=== PATIENT | male | born 1945 | race Caucasian/White ===

== ENCOUNTER 2023-06-03 15:46 | Inpatient (IN) | payer BC, MEDICAID ==
[~2023-06-03] VITALS: Ht 152.4 cm; Wt 51.3 kg
[~2023-06-03 15:46] MED LIST: ASPI-1497 MT; ATOR40TA70 PO; CLON-493 PO; CLOP75TA33 MT; GABA-532 PO; HYDR-3933 PO; ISOS60TA76 MT; LIDO700A TP; LORA2ORA5 PO; LOSA100T33 MT; METF-414 PO; METO-396 PO; MUPI15CR11 TP; OXYC-159 PO; PRAV20TA57 PO; TRAZ-252 MT
[2023-06-03] MEDS ORDERED: ONDANSETRON HCL 4MG/2ML INJ IV STA (15:59)
[2023-06-03] MEDS ORDERED: SODIUM CHLORIDE 0.9% 1,000 ML IV ONE (16:00)
[2023-06-03 17:08] LABS: BASOPHILS % 0.2 % (0.0-2.0); HEMATOCRIT. 38.3 % (42.0-52.0); HEMOGLOBIN. 12.5 g/dL (14.0-18.0); LYMPHOCYTES % 12.6 % (20.0-50.0); MEAN CORPUSCULAR HEMOGLOBIN 30.8 pg (28.0-32.0); MEAN CORPUSCULAR HGB CONC 32.7 g/dL (31.0-37.0); MEAN CORPUSCULAR VOLUME 94.4 fL (80.0-94.0); NEUTROPHILS % 80.2 % (40.0-76.0); PLATELET 397 x1000/uL (130-400); RED BLOOD CELL COUNT 4.06 mill/uL (4.7-6.1); RED CELL DISTRIBUTION WIDTH 16.8 % (11.6-14.6); WHITE BLOOD COUNT 6.6 x1000/uL (4.5-11.0)
[2023-06-03 17:14] LABS: INR 1.1; PROTHROMBIN TIME 12.1 sec (9.6-11.0)
[2023-06-03 17:15] LABS: CHLORIDE 103 mEq/L (98-107); INDEX HEMOLYSI 1 (1-3); INDEX ICTERIC 1 (1-4); INDEX LIPEMIC 1 (1-3); POTASSIUM 4.7 mEq/L (3.5-5.1); SODIUM 138 mEq/L (136-145)
[2023-06-03 17:29] LABS: ALANINE AMINOTRANSFERASE 11 IU/L (13-61); ALBUMIN 3.3 g/dL (3.4-5.0); ASPARTATE AMINOTRANSFERASE 21 IU/L (15-37); BILIRUBIN TOTAL 0.8 mg/dL (0.1-1.0); CALCIUM 9.1 mg/dL (8.5-10.1); CARBON DIOXIDE 21 mEq/L (21-32); CREATININE 1.5 mg/dL (0.6-1.3); GLUCOSE 95 mg/dL (70-105); PROTEIN TOTAL 9.4 g/dL (6.0-8.3); UREA NITROGEN BLOOD 40 mg/dL (7-21)
[2023-06-03 17:34] LABS: TROPONIN I HIGH SENSITIVITY 435 ng/L (<78)
[2023-06-03] MEDS ORDERED: ASPIRIN 325MG TABLET PO ONE (18:00)
[2023-06-03 18:54] LABS: CLARITY URINE CLEAR (CLEAR); COLOR URINE YELLOW (YELLOW); GLUCOSE URINE NEGATIVE (NEGATIVE); KETONES URINE 2+ (NEGATIVE); LEUKOCYTE ESTERASE URINE NEGATIVE (NEGATIVE); NITRITE URINE NEGATIVE (NEGATIVE); OCCULT BLOOD URINE 2+ (NEGATIVE); PH URINE 5.5 (4.5-8.0); PROTEIN URINE 2+ (NEGATIVE); SPECIFIC GRAVITY URINE 1.014 (1.005-1.030)
[2023-06-03 18:57] LABS: BACTERIA URINE NONE SEEN; SQUAMOUS EPITHELIAL CELL URINE NONE SEEN /lpf (RARE/1+); WBC URINE 0-2 /hpf (0-2); YEAST URINE NONE SEEN
[2023-06-03 20:39] LABS: TROPONIN I HIGH SENSITIVITY 934 ng/L (<78)
[2023-06-03] MEDS ORDERED: LABETALOL 5MG/ML SYR 20 MG/4 ML SYRINGE IV NR (22:15)
[2023-06-03] MEDS ORDERED: LABETALOL HCL VIAL 20 MG/4 ML VIAL IV ONE (22:15)
[2023-06-04] MEDS ORDERED: ONDANSETRON HCL 4MG/2ML INJ IV ONE (04:30)
[2023-06-04] MEDS ORDERED: DEXTROSE 50% WATER 50ML SYRINGE IV ONE (04:30)
[2023-06-04] MEDS ORDERED: DEXT 5%/0.45% NACL 500ML 1,000 ML IV SCH (05:45)
[2023-06-04] MEDS: DEXT 5%/0.45% NACL 1000ML 1,000 ML IV SCH ×2 (05:59→06:00)
[2023-06-04] MEDS ORDERED: DIATR MEGLU/DIATRIZOATE SOLN 120ML ONE (10:36)
[2023-06-04] MEDS ORDERED: ONDANSETRON HCL 4MG/2ML INJ IV PRN (11:45)
[2023-06-04] MEDS ORDERED: ACETAMINOPHEN 325MG TABLET PO PRN ×2 (11:45)
[2023-06-04] MEDS ORDERED: CLONIDINE 0.1MG TABLET PO PRN (11:45)
[2023-06-04] MEDS ORDERED: IPRATROPIUM/ALBUTEROL 0.5-3(2.5)MG/3ML NEB HHN PRN (11:45)
[2023-06-04] MEDS ORDERED: DOCUSATE SODIUM 100MG CAPSULE PO PRN (11:45)
[2023-06-04] MEDS: CLOPIDOGREL 75MG TABLET PO SCH (12:38)
[2023-06-04] MEDS: ASPIRIN 81MG TABLET PO SCH (12:38)
[2023-06-04 14:00] VITALS: BP_SYST 134; BP_SYST 175; BP_DIAS 81; BP_DIAS 83; PULSE 86; PULSE 99; RESP 18; RESP 20; TEMP 97.1; TEMP 97.8
[2023-06-04] MEDS: METOPROLOL SUCCINATE 50MG ER TABLET PO SCH (15:35)
[2023-06-04] MEDS: GABAPENTIN 300MG CAPSULE PO SCH (15:37)
[2023-06-04] MEDS: NITROGLYCERIN OINT 1GM/INCH UDPKT TD SCH (15:37)
[2023-06-04] MEDS: ENOXAPARIN 80MG/0.8ML SYR SUBCUT SCH (15:40)
[2023-06-04 16:00] VITALS: BP 175/81; PULSE 86; RESP 18; TEMP 97.1
[2023-06-04 17:22] LABS: BASOPHILS % 0.2 % (0.0-2.0); EOSINOPHILS % 0.1 % (0.0-5.0); HEMATOCRIT. 34.3 % (42.0-52.0); HEMOGLOBIN. 12.3 g/dL (14.0-18.0); LYMPHOCYTES % 13.8 % (20.0-50.0); MEAN CORPUSCULAR HEMOGLOBIN 34.4 pg (28.0-32.0); MEAN CORPUSCULAR HGB CONC 35.9 g/dL (31.0-37.0); MEAN CORPUSCULAR VOLUME 95.8 fL (80.0-94.0); MEAN PLATELET VOLUME 7.3 fl (7.4-10.4); MONOCYTES % 8.9 % (2.0-8.0); PLATELET 451 x1000/uL (130-400); RED BLOOD CELL COUNT 3.58 mill/uL (4.7-6.1); RED CELL DISTRIBUTION WIDTH 16.7 % (11.6-14.6); WHITE BLOOD COUNT 8.2 x1000/uL (4.5-11.0)
[2023-06-04] MEDS: INSULIN LISPRO 100 UNITS/ML SUBCUT SCH (17:40)
[2023-06-04 17:41] LABS: POTASSIUM 4.1 mEq/L (3.5-5.1)
[2023-06-04 17:57] LABS: CREATINE KINASE MB FRACTION 17.5 ng/mL (0.5-3.6); CREATININE 1.3 mg/dL (0.6-1.3); THYROID STIMULATING HORMONE 0.14 uIU/mL (0.36-3.74)
[2023-06-04] MEDS: BLOOD SUGAR DIAGNOSTIC STRIP TEST SCH (18:01)
[2023-06-04] MEDS: METRONIDAZOLE 500 MG PREMIX 100 ML IV SCH (18:12)
[2023-06-04 20:00] VITALS: BP 158/77; PULSE 85; RESP 20; TEMP 98.2
[2023-06-04 23:37] LABS: CREATINE KINASE MB FRACTION 13.6 ng/mL (0.5-3.6)
[2023-06-05] VITALS: BP 126/63; PULSE 85; RESP 20; TEMP 98.1
[2023-06-05] MEDS: ATORVASTATIN CALCIUM 40MG TABLET PO SCH ×2 (01:59→21:08)
[2023-06-05] MEDS: GABAPENTIN 300MG CAPSULE PO SCH ×4 (02:00→21:08)
[2023-06-05] MEDS: NITROGLYCERIN OINT 1GM/INCH UDPKT TD SCH ×4 (02:00→21:24)
[2023-06-05] MEDS: METRONIDAZOLE 500 MG PREMIX 100 ML IV SCH ×3 (02:01→16:20)
[2023-06-05] MEDS: BLOOD SUGAR DIAGNOSTIC STRIP TEST SCH ×4 (07:10→21:13)
[2023-06-05] MEDS: INSULIN LISPRO 100 UNITS/ML SUBCUT SCH ×4 (07:40→21:09)
[2023-06-05 08:00] VITALS: BP 135/75; PULSE 76; RESP 18; TEMP 97.4
[2023-06-05] MEDS: PANTOPRAZOLE SODIUM 40 MG/VIAL IV SCH (08:38)
[2023-06-05] MEDS: LOSARTAN 100 MG TABLET PO SCH (08:39)
[2023-06-05] MEDS: ASPIRIN 81MG TABLET PO SCH (08:39)
[2023-06-05] MEDS: CLOPIDOGREL 75MG TABLET PO SCH (08:40)
[2023-06-05] MEDS: METOPROLOL SUCCINATE 50MG ER TABLET PO SCH (08:40)
[2023-06-05] MEDS: DEXT 5%/0.45% NACL 1000ML 1,000 ML IV SCH (08:40)
[2023-06-05] MEDS ORDERED: HYDROCODONE/ACETAMINOPHEN 5/325MG TABLET PO PRN (11:00)
[2023-06-05 12:00] VITALS: BP 128/58; PULSE 64; RESP 20; TEMP 96.3
[2023-06-05 12:53] LABS: POTASSIUM 3.9 mEq/L (3.5-5.1)
[2023-06-05 13:07] LABS: CREATININE 1.4 mg/dL (0.6-1.3); T4 FREE 1.19 ng/dL (0.76-1.46)
[2023-06-05] MEDS ORDERED: NALOXONE HCL 0.4MG/ML VIAL IV PRN (14:00)
[2023-06-05 14:23] LABS: BASOPHILS % 0.4 % (0.0-2.0); EOSINOPHILS % 0.5 % (0.0-5.0); HEMATOCRIT. 34.7 % (42.0-52.0); HEMOGLOBIN. 11.6 g/dL (14.0-18.0); LYMPHOCYTES % 24.1 % (20.0-50.0); MEAN CORPUSCULAR HEMOGLOBIN 31.3 pg (28.0-32.0); MEAN CORPUSCULAR HGB CONC 33.3 g/dL (31.0-37.0); MEAN CORPUSCULAR VOLUME 93.9 fL (80.0-94.0); MEAN PLATELET VOLUME 7.1 fl (7.4-10.4); MONOCYTES % 10.7 % (2.0-8.0); NEUTROPHILS % 64.3 % (40.0-76.0); PLATELET 438 x1000/uL (130-400); RED BLOOD CELL COUNT 3.69 mill/uL (4.7-6.1); RED CELL DISTRIBUTION WIDTH 16.8 % (11.6-14.6)
[2023-06-05 16:00] VITALS: BP 110/51; PULSE 63; RESP 18; TEMP 98.1
[2023-06-05] MEDS: HYDROCODONE/ACETAMINOPHEN 10/325MG TABLET PO PRN (16:20)
[2023-06-05] MEDS: ENOXAPARIN 80MG/0.8ML SYR SUBCUT SCH (16:20)
[2023-06-05 20:00] VITALS: BP 107/40; PULSE 66; RESP 16; TEMP 98.9
[2023-06-06] VITALS: BP 109/49; PULSE 60; RESP 18; TEMP 97.9
[2023-06-06] MEDS: DEXT 5%/0.45% NACL 1000ML 1,000 ML IV SCH (01:21)
[2023-06-06] MEDS: METRONIDAZOLE 500 MG PREMIX 100 ML IV SCH ×3 (01:33→17:30)
[2023-06-06 04:00] VITALS: BP 125/46; PULSE 61; RESP 16; TEMP 97.7
[2023-06-06] MEDS: HYDROCODONE/ACETAMINOPHEN 10/325MG TABLET PO PRN ×5 (04:36→20:48)
[2023-06-06] MEDS: GABAPENTIN 300MG CAPSULE PO SCH ×3 (05:58→21:56)
[2023-06-06] MEDS: NITROGLYCERIN OINT 1GM/INCH UDPKT TD SCH ×3 (05:58→21:57)
[2023-06-06] MEDS: BLOOD SUGAR DIAGNOSTIC STRIP TEST SCH ×4 (06:16→20:49)
[2023-06-06] MEDS: INSULIN LISPRO 100 UNITS/ML SUBCUT SCH ×4 (07:40→20:48)
[2023-06-06 07:45] LABS: BASOPHILS % 0.6 % (0.0-2.0); HEMATOCRIT. 34.1 % (42.0-52.0); MEAN CORPUSCULAR HEMOGLOBIN 29.1 pg (28.0-32.0); MEAN CORPUSCULAR VOLUME 90.6 fL (80.0-94.0); MEAN PLATELET VOLUME 7.2 fl (7.4-10.4); NEUTROPHILS % 51.4 % (40.0-76.0); PLATELET 392 x1000/uL (130-400); RED BLOOD CELL COUNT 3.77 mill/uL (4.7-6.1); WHITE BLOOD COUNT 7.2 x1000/uL (4.5-11.0)
[2023-06-06 07:49] LABS: DIFFERENTIAL COMMENT 1; MEAN CORPUSCULAR HGB CONC 32.1 g/dL (31.0-37.0)
[2023-06-06 08:00] VITALS: BP 143/94; PULSE 55; RESP 20; TEMP 97.5
[2023-06-06] MEDS: LOSARTAN 100 MG TABLET PO SCH (08:29)
[2023-06-06] MEDS: PANTOPRAZOLE SODIUM 40 MG/VIAL IV SCH (08:29)
[2023-06-06] MEDS: CLOPIDOGREL 75MG TABLET PO SCH (08:29)
[2023-06-06] MEDS: ASPIRIN 81MG TABLET PO SCH (08:29)
[2023-06-06] MEDS: METOPROLOL SUCCINATE 50MG ER TABLET PO SCH (08:30)
[2023-06-06 09:04] LABS: POTASSIUM 3.7 mEq/L (3.5-5.1)
[2023-06-06 09:11] LABS: CALCIUM 8.3 mg/dL (8.5-10.1); CREATININE 1.5 mg/dL (0.6-1.3)
[2023-06-06] MEDS ORDERED: DIPHENHYDRAMINE 50MG/ML VIAL ONE (11:41)
[2023-06-06] MEDS ORDERED: LIDOCAINE HCL 1% 20ML VIAL (Pyxis) INJ ONE (11:41)
[2023-06-06] MEDS ORDERED: VERAPAMIL HCL 2.5 MG/1 ML 2ML VIAL IV ONE (11:41)
[2023-06-06] MEDS ORDERED: FENTANYL CITRATE/PF 50MCG/ML 2ML VIAL ONE (11:42)
[2023-06-06] MEDS ORDERED: MIDAZOLAM HCL 2 MG/2 ML VIAL ONE (11:42)
[2023-06-06] MEDS ORDERED: HEPARIN 1000 UNITS/ML 10ML ONE (11:42)
[2023-06-06] MEDS ORDERED: IODIXANOL 320MG/ML 100 ML BOTTLE IV ONE (11:43)
[2023-06-06] MEDS ORDERED: ATROPINE SULFATE 1MG/10ML SYR IV PRN (13:30)
[2023-06-06] MEDS ORDERED: SODIUM CHLORIDE 0.45% 250 ML IV SCH (13:30)
[2023-06-06] MEDS ORDERED: ACETAMINOPHEN 325MG TABLET PO PRN ×2 (13:30→17:00)
[2023-06-06] MEDS: SODIUM CHLORIDE 0.45% 1,000 ML IV SCH (14:30)
[2023-06-06 16:00] VITALS: BP 135/64; PULSE 85; RESP 16; TEMP 98
[2023-06-06] MEDS ORDERED: NITROGLYCERIN 0.4MG TABLET SL SL PRN (17:00)
[2023-06-06 20:00] VITALS: BP 112/47; PULSE 73; RESP 17; TEMP 98.1
[2023-06-06] MEDS: ATORVASTATIN CALCIUM 40MG TABLET PO SCH (20:48)
[2023-06-07] VITALS: BP 119/60; PULSE 65; RESP 15; TEMP 97.8
[2023-06-07] MEDS: METRONIDAZOLE 500 MG PREMIX 100 ML IV SCH ×2 (02:22→08:58)
[2023-06-07 04:00] VITALS: BP 125/51; PULSE 67; RESP 14; TEMP 97.5
[2023-06-07] MEDS: BLOOD SUGAR DIAGNOSTIC STRIP TEST SCH ×4 (06:50→20:57)
[2023-06-07] MEDS: GABAPENTIN 300MG CAPSULE PO SCH ×3 (06:57→21:07)
[2023-06-07] MEDS: NITROGLYCERIN OINT 1GM/INCH UDPKT TD SCH ×3 (06:58→21:15)
[2023-06-07] MEDS: INSULIN LISPRO 100 UNITS/ML SUBCUT SCH ×4 (06:58→20:58)
[2023-06-07 07:26] LABS: CALCIUM 7.5 mg/dL (8.5-10.1); CREATININE 1.5 mg/dL (0.6-1.3)
[2023-06-07 08:00] VITALS: BP 152/55; PULSE 90; RESP 18; TEMP 96.8
[2023-06-07] MEDS: ASPIRIN 81MG TABLET PO SCH (08:10)
[2023-06-07] MEDS: METOPROLOL SUCCINATE 50MG ER TABLET PO SCH (08:11)
[2023-06-07] MEDS: SODIUM CHLORIDE 0.45% 1,000 ML IV SCH (08:58)
[2023-06-07] MEDS ORDERED: ENOXAPARIN 80MG/0.8ML SYR SUBCUT SCH (09:00)
[2023-06-07 09:06] LABS: BASOPHILS % 0.5 % (0.0-2.0); EOSINOPHILS % 2.3 % (0.0-5.0); HEMATOCRIT. 34.6 % (42.0-52.0); HEMOGLOBIN. 11.2 g/dL (14.0-18.0); LYMPHOCYTES % 22.3 % (20.0-50.0); MEAN CORPUSCULAR HEMOGLOBIN 29.3 pg (28.0-32.0); MEAN CORPUSCULAR HGB CONC 32.3 g/dL (31.0-37.0); MEAN CORPUSCULAR VOLUME 90.7 fL (80.0-94.0); MONOCYTES % 8.9 % (2.0-8.0); PLATELET 376 x1000/uL (130-400); RED BLOOD CELL COUNT 3.81 mill/uL (4.7-6.1); RED CELL DISTRIBUTION WIDTH 16.7 % (11.6-14.6); WHITE BLOOD COUNT 9.3 x1000/uL (4.5-11.0)
[2023-06-07] MEDS: FAMOTIDINE 20MG/2ML VIAL IV SCH ×2 (09:16→21:08)
[2023-06-07 12:00] VITALS: BP 132/73; PULSE 80; RESP 16; TEMP 97.3
[2023-06-07] MEDS: PIPERACILLIN/TAZOBACTAM 3.375 G in DEXTROSE 5% WATER 50 ML IV SCH ×2 (12:00→19:37)
[2023-06-07] MEDS: HYDROCODONE/ACETAMINOPHEN 10/325MG TABLET PO PRN ×2 (15:12→21:18)
[2023-06-07 16:00] VITALS: BP 130/46; PULSE 72; RESP 19; TEMP 98.6
[2023-06-07 20:00] VITALS: BP 136/51; PULSE 70; RESP 16; TEMP 98.3
[2023-06-07] MEDS ORDERED: CHLORHEXIDINE GLUCONATE 4% EXTERNAL USE TOP SCH (21:00)
[2023-06-07] MEDS ORDERED: DIPHENHYDRAMINE 25MG CAPSULE PO PRN (21:00)
[2023-06-07] MEDS ORDERED: ASCORBIC ACID 500 MG TABLET PO SCH (21:00)
[2023-06-07] MEDS ORDERED: BISACODYL 10MG SUPP PR PRN (21:00)
[2023-06-07] MEDS ORDERED: DOCUSATE SODIUM 100MG CAPSULE PO SCH (21:00)
[2023-06-07] MEDS: ALLOPURINOL 300 MG TABLET PO SCH (21:08)
[2023-06-07] MEDS: ATORVASTATIN CALCIUM 40MG TABLET PO SCH (21:08)
[2023-06-08] VITALS (25 sets, daily range): BP systolic 76–143; BP diastolic 31–76; PULSE 62–142; RESP 13–27; TEMP 94.6–99.8
[2023-06-08] MEDS: HYDROCODONE/ACETAMINOPHEN 10/325MG TABLET PO PRN ×2 (01:02→06:04)
[2023-06-08] MEDS: PIPERACILLIN/TAZOBACTAM 3.375 G in DEXTROSE 5% WATER 50 ML IV SCH ×3 (01:02→22:00)
[2023-06-08] MEDS ORDERED: INSULIN REGULAR 100 U/100 ML PREMIX IV NR (05:00)
[2023-06-08] MEDS ORDERED: NOREPINEPHRINE 8MG/250ML PMX 250 ML IV NR (05:00)
[2023-06-08] MEDS ORDERED: CEFAZOLIN 2,000 MG in DEXT 5% WATER 100 ML IV NR (05:00)
[2023-06-08] MEDS ORDERED: EPINEPHRINE 5 MG in DEXT 5% WATER 250 ML IV NR (05:00)
[2023-06-08] MEDS ORDERED: PAPAVERINE HCL 180MG in SODIUM CHLORIDE 0.9% 24ML IV NR ×2 (05:00→16:15)
[2023-06-08] MEDS ORDERED: DOBUTAMINE 250 MG/250 ML PREMIX IV NR (05:00)
[2023-06-08] MEDS ORDERED: DEL NIDO CARDIOPLEGIA 1,000 ML (CHMC) IV NR ×12 (05:00)
[2023-06-08] MEDS ORDERED: NICARDIPINE 40MG/200ML PREMIX 230 ML IV NR (05:00)
[2023-06-08] MEDS: GABAPENTIN 300MG CAPSULE PO SCH (05:51)
[2023-06-08] MEDS: ALLOPURINOL 300 MG TABLET PO SCH (05:52)
[2023-06-08] MEDS: NITROGLYCERIN OINT 1GM/INCH UDPKT TD SCH (05:56)
[2023-06-08] MEDS: SODIUM CHLORIDE 0.45% 1,000 ML IV SCH (06:30)
[2023-06-08] MEDS: BLOOD SUGAR DIAGNOSTIC STRIP TEST SCH ×6 (06:42→23:54)
[2023-06-08] MEDS: INSULIN LISPRO 100 UNITS/ML SUBCUT SCH ×2 (07:20→12:20)
[2023-06-08] MEDS ORDERED: CHLORHEXIDINE GLUCONATE 4% EXTERNAL USE TOP SCH (09:00)
[2023-06-08] MEDS ORDERED: BLOOD SUGAR DIAGNOSTIC STRIP TEST NR (10:00)
[2023-06-08 10:46] LABS: POTASSIUM 4.2 mEq/L (3.5-5.1)
[2023-06-08 10:53] LABS: CREATININE 1.4 mg/dL (0.6-1.3)
[2023-06-08 11:05] LABS: BASOPHILS % 0.5 % (0.0-2.0); EOSINOPHILS % 3.9 % (0.0-5.0); HEMATOCRIT. 33.7 % (42.0-52.0); HEMOGLOBIN. 10.8 g/dL (14.0-18.0); LYMPHOCYTES % 34.7 % (20.0-50.0); MEAN CORPUSCULAR HEMOGLOBIN 29.3 pg (28.0-32.0); MEAN CORPUSCULAR HGB CONC 31.9 g/dL (31.0-37.0); MEAN CORPUSCULAR VOLUME 91.9 fL (80.0-94.0); MEAN PLATELET VOLUME 7.5 fl (7.4-10.4); MONOCYTES % 9.8 % (2.0-8.0); NEUTROPHILS % 51.1 % (40.0-76.0); PLATELET 359 x1000/uL (130-400); RED BLOOD CELL COUNT 3.67 mill/uL (4.7-6.1); RED CELL DISTRIBUTION WIDTH 17.1 % (11.6-14.6); WHITE BLOOD COUNT 6.2 x1000/uL (4.5-11.0)
[2023-06-08] MEDS: FAMOTIDINE 20MG/2ML VIAL IV SCH ×2 (11:23→21:37)
[2023-06-08] MEDS ORDERED: DOPAMINE 400MG/250ML PREMIX 250 ML IV ONE (11:29)
[2023-06-08] MEDS ORDERED: NITROGLYCERIN 50MG PREMIX 250 ML IV ONE (11:30)
[2023-06-08] MEDS ORDERED: HEPARIN 1000 UNITS/ML 10ML ONE (11:30)
[2023-06-08] MEDS ORDERED: ETOMIDATE 2MG/ML 10ML VIAL IV ONE (11:41)
[2023-06-08] MEDS ORDERED: VECURONIUM BROMIDE 10 MG/VIAL IV ONE (11:41)
[2023-06-08] MEDS ORDERED: AMINOCAPROIC ACID 250 MG/ML 20ML VIAL ONE (11:41)
[2023-06-08] MEDS ORDERED: CEFAZOLIN SODIUM 1000MG/VIAL ONE (11:51)
[2023-06-08] MEDS ORDERED: PROTAMINE SULFATE 10MG/ML VIAL 25ML IV ONE ×2 (12:48→19:17)
[2023-06-08] MEDS ORDERED: GLYCOPYRROLATE 0.2 MG/ML 2ML VIAL ONE ×3 (13:34→18:15)
[2023-06-08] MEDS ORDERED: NEOSTIGMINE METHYLSULFATE 1MG/ML 10 ML VIAL ONE ×2 (13:34→18:15)
[2023-06-08] MEDS ORDERED: THROMBIN (BOVINE) 5000 UNITS/VIAL TOP ONE (15:32)
[2023-06-08] MEDS ORDERED: ACETAMINOPHEN 500MG TABLET ONE (15:33)
[2023-06-08] MEDS ORDERED: POLYMYXIN B SULFATE 500000 UNITS/VIAL ONE (15:33)
[2023-06-08] MEDS ORDERED: SKIN ADHESIVE 0.7 GM EA TOP ONE (15:33)
[2023-06-08] MEDS ORDERED: FENTANYL CITRATE/PF 50MCG/ML 5ML VIAL ONE (15:44)
[2023-06-08] MEDS ORDERED: LR with VERAPAMIL, NTG, HEPARIN, SODIUM BICARBONATE (Soln) IV NR ×5 (15:45)
[2023-06-08] MEDS ORDERED: VANCOMYCIN HCL 1 GM/VIAL ONE (16:41)
[2023-06-08] MEDS ORDERED: DEXTROSE 50% WATER 50ML SYRINGE IV ONE (17:40)
[2023-06-08] MEDS ORDERED: CALCIUM CHLORIDE 1GM/10ML SYR IV ONE (17:50)
[2023-06-08] MEDS ORDERED: ONDANSETRON HCL 4MG/2ML INJ ONE (18:15)
[2023-06-08] MEDS ORDERED: SODIUM BICARBONATE 8.4% 1 MEQ/ML 50ML SYR IV ONE (18:36)
[2023-06-08] MEDS ORDERED: ALBUMIN HUMAN 12.5G/250ML (5%) IV ONE (18:50)
[2023-06-08] MEDS ORDERED: MAGNESIUM 1 G PREMIX 100 ML IV PRN (19:00)
[2023-06-08] MEDS ORDERED: ACETAMINOPHEN 325MG TABLET PO PRN (19:00)
[2023-06-08] MEDS ORDERED: MAGNESIUM SULFATE 3 GM in DEXT 5% WATER 100 ML IV PRN (19:00)
[2023-06-08] MEDS ORDERED: ALBUMIN HUMAN 25GM/100ML (25%) IV PRN (19:00)
[2023-06-08] MEDS ORDERED: CALCIUM CHLORIDE 5,000 MG in DEXT 5% WATER 500 ML IV PRN (19:00)
[2023-06-08] MEDS ORDERED: CALCIUM CHLORIDE 3,000 MG in DEXT 5% WATER 250 ML IV PRN (19:00)
[2023-06-08] MEDS ORDERED: SODIUM CHLORIDE 0.9% 500 ML IV PRN (19:00)
[2023-06-08] MEDS ORDERED: OXYCODONE HCL/ACETAMINOPHEN 5/325MG TABLET PO PRN (19:00)
[2023-06-08] MEDS ORDERED: KETOROLAC 15MG/ML VIAL IV PRN (19:00)
[2023-06-08] MEDS ORDERED: ALBUMIN HUMAN 12.5G/250ML (5%) IV PRN (19:00)
[2023-06-08] MEDS ORDERED: KCL 10MEQ/50ML PREMIX 150 ML IV PRN (19:15)
[2023-06-08] MEDS ORDERED: KCL 10MEQ/50ML PREMIX 200 ML IV PRN (19:15)
[2023-06-08] MEDS: KCL 20MEQ/100ML PREMIX 100 ML IV SCH ×3 (19:57→23:41)
[2023-06-08 20:17] LABS: BG BASE EXCESS -8.1 mmol/L (-2.0-2.0); BG CARBOXYHEMOGLOBIN 0.3 % (0.5-1.5); BG DEOXYHEMOGLOBIN 8.1 % (0.0-5.0); BG FRACTION INSPIRED OXYGEN 60; BG HCO3 ACT 19.4 mmol/L (22.0-26.0); BG METHEMOGLOBIN 0.3 % (0.0-1.5); BG OXYGEN SATURATION 91.9 % (92.0-98.5); BG OXYHEMOGLOBIN 91.3 % (94.0-97.0); BG PCO2 48.5 mmHg (35.0-45.0); BG PH 7.219 (7.350-7.450); BG SAMPLE SITE ALINE; BG TOTAL HEMOGLOBIN 10.5 g/dL (12.0-18.0); BG VENT MODE VENT - AC
[2023-06-08] MEDS: DOPAMINE 400MG/250ML PREMIX 250 ML IV PRN (20:19)
[2023-06-08] MEDS: ASPIRIN 81MG TABLET PO SCH (20:28)
[2023-06-08] MEDS: METOPROLOL SUCCINATE 50MG ER TABLET PO SCH (20:28)
[2023-06-08] MEDS: IPRATROPIUM/ALBUTEROL 0.5-3(2.5)MG/3ML NEB HHN SCH (20:42)
[2023-06-08] MEDS ORDERED: SODIUM BICARBONATE 8.4% 1 MEQ/ML 50ML SYR IV NR (20:59)
[2023-06-08] MEDS ORDERED: INSULIN REGULAR 100U/100ML PMX 100 ML IV SCH (21:00)
[2023-06-08] MEDS ORDERED: POTASSIUM CHLORIDE INJ 60 MEQ in DEXT 5% WATER 250 ML IV ONE (21:30)
[2023-06-08] MEDS ORDERED: DEXMEDETOMIDINE 400 MCG/100 ML 100 ML IV PRN (21:30)
[2023-06-08] MEDS ORDERED: FENTANYL CITRATE/PF 50MCG/ML 2ML VIAL IV PRN (21:42)
[2023-06-08] MEDS: ATORVASTATIN CALCIUM 40MG TABLET PO SCH (21:42)
[2023-06-08 22:00] LABS: BG BASE EXCESS -2.5 mmol/L (-2.0-2.0); BG FRACTION INSPIRED OXYGEN 60; BG HCO3 ACT 24.5 mmol/L (22.0-26.0); BG METHEMOGLOBIN 0.3 % (0.0-1.5); BG OXYHEMOGLOBIN 96.7 % (94.0-97.0); BG PCO2 54.3 mmHg (35.0-45.0); BG PH 7.272 (7.350-7.450); BG PO2 101.1 mmHg (75.0-100.0); BG SAMPLE SITE ALINE; BG TOTAL HEMOGLOBIN 8.7 g/dL (12.0-18.0); BG VENT MODE VENT - AC
[2023-06-08 23:05] LABS: BG BASE EXCESS -3.8 mmol/L (-2.0-2.0); BG CARBOXYHEMOGLOBIN 0.1 % (0.5-1.5); BG DEOXYHEMOGLOBIN 4.8 % (0.0-5.0); BG FRACTION INSPIRED OXYGEN 50; BG HCO3 ACT 22.4 mmol/L (22.0-26.0); BG OXYGEN SATURATION 95.2 % (92.0-98.5); BG OXYHEMOGLOBIN 95.1 % (94.0-97.0); BG PCO2 46.1 mmHg (35.0-45.0); BG PH 7.305 (7.350-7.450); BG PO2 78.5 mmHg (75.0-100.0); BG SAMPLE SITE ALINE; BG TOTAL HEMOGLOBIN 8.8 g/dL (12.0-18.0); BG VENT MODE VENT - AC
[2023-06-09] VITALS (103 sets, daily range): BP systolic 85–162; BP diastolic 37–113; PULSE 74–141; RESP 10–26; TEMP 97.6–101; O2SAT 99
[2023-06-09 00:22] LABS: MEAN CORPUSCULAR HEMOGLOBIN 33.8 pg (28.0-32.0); MEAN CORPUSCULAR HGB CONC 32.2 g/dL (31.0-37.0); MEAN CORPUSCULAR VOLUME 104.7 fL (80.0-94.0); PLATELET 305 x1000/uL (130-400); RED BLOOD CELL COUNT 1.87 mill/uL (4.7-6.1); RED CELL DISTRIBUTION WIDTH 16.9 % (11.6-14.6); WHITE BLOOD COUNT 18.7 x1000/uL (4.5-11.0)
[2023-06-09 00:25] LABS: POTASSIUM 3.7 mEq/L (3.5-5.1)
[2023-06-09 00:30] LABS: CALCIUM 9.2 mg/dL (8.5-10.1); CREATININE 1.3 mg/dL (0.6-1.3); HEMATOCRIT 19.6 % (42.0-52.0); HEMOGLOBIN 6.3 g/dL (14.0-18.0)
[2023-06-09] MEDS: IPRATROPIUM/ALBUTEROL 0.5-3(2.5)MG/3ML NEB HHN SCH ×4 (00:34→20:47)
[2023-06-09] MEDS ORDERED: ACETAMINOPHEN 650MG SUPP PR PRN ×2 (00:53)
[2023-06-09] MEDS: BLOOD SUGAR DIAGNOSTIC STRIP TEST SCH ×22 (01:00→23:35)
[2023-06-09] MEDS: EPINEPHRINE 5 MG in DEXT 5% WATER 245 ML IV PRN ×2 (01:06→15:45)
[2023-06-09] MEDS: KCL 20MEQ/100ML PREMIX 100 ML IV SCH (01:07)
[2023-06-09] MEDS: CEFAZOLIN 1000MG PREMIX 50 ML IV SCH ×4 (01:11→23:55)
[2023-06-09 01:21] LABS: HEMATOCRIT 19.4 % (42.0-52.0); HEMOGLOBIN 6.1 g/dL (14.0-18.0)
[2023-06-09] MEDS: SODIUM CHLORIDE 0.45% 1,000 ML IV SCH ×2 (01:45→21:45)
[2023-06-09] MEDS ORDERED: FUROSEMIDE 40MG/4ML VIAL IVP NR ×4 (04:43→22:15)
[2023-06-09 05:09] LABS: CALCIUM 9.2 mg/dL (8.5-10.1); POTASSIUM 3.8 mEq/L (3.5-5.1)
[2023-06-09 05:13] LABS: CREATININE 1.4 mg/dL (0.6-1.3)
[2023-06-09] MEDS: DEXTROSE 50% WATER 50ML SYRINGE IV PRN ×4 (05:22→22:50)
[2023-06-09] MEDS: PIPERACILLIN/TAZOBACTAM 3.375 G in DEXTROSE 5% WATER 50 ML IV SCH ×3 (05:22→21:51)
[2023-06-09 05:23] LABS: BG BASE EXCESS -2.5 mmol/L (-2.0-2.0); BG CARBOXYHEMOGLOBIN 0.1 % (0.5-1.5); BG DEOXYHEMOGLOBIN 0.8 % (0.0-5.0); BG FRACTION INSPIRED OXYGEN 50; BG HCO3 ACT 22.3 mmol/L (22.0-26.0); BG METHEMOGLOBIN 0.3 % (0.0-1.5); BG OXYGEN SATURATION 99.2 % (92.0-98.5); BG OXYHEMOGLOBIN 98.8 % (94.0-97.0); BG PCO2 38.4 mmHg (35.0-45.0); BG PH 7.382 (7.350-7.450); BG PO2 242.8 mmHg (75.0-100.0); BG SAMPLE SITE ALINE; BG TOTAL HEMOGLOBIN 9.3 g/dL (12.0-18.0); BG VENT MODE VENT - AC
[2023-06-09] MEDS: BACITRACIN 15GM TUBE TOP SCH ×2 (08:14→16:06)
[2023-06-09] MEDS: FAMOTIDINE 20MG/2ML VIAL IV SCH (09:15)
[2023-06-09] MEDS: KCL 10MEQ/50ML PREMIX 100 ML IV PRN (09:35)
[2023-06-09] MEDS: DEXT 5%/0.45% NACL 1000ML 1,000 ML IV SCH (09:50)
[2023-06-09 09:58] LABS: BG BASE EXCESS -6.2 mmol/L (-2.0-2.0); BG CARBOXYHEMOGLOBIN 0.5 % (0.5-1.5); BG DEOXYHEMOGLOBIN 1.9 % (0.0-5.0); BG HCO3 ACT 21.6 mmol/L (22.0-26.0); BG METHEMOGLOBIN 0.4 % (0.0-1.5); BG OXYGEN SATURATION 98.1 % (92.0-98.5); BG OXYHEMOGLOBIN 97.2 % (94.0-97.0); BG PH 7.228 (7.350-7.450); BG PO2 143.6 mmHg (75.0-100.0); BG SAMPLE SITE ALINE; BG TOTAL HEMOGLOBIN 11.9 g/dL (12.0-18.0); BG VENT MODE VENT - SIMV
[2023-06-09] MEDS: MAGNESIUM 2 G PREMIX 50 ML IV PRN (10:37)
[2023-06-09] MEDS: ASPIRIN 81MG TABLET PO SCH (10:48)
[2023-06-09] MEDS: CLOPIDOGREL 75MG TABLET PO SCH (10:48)
[2023-06-09] MEDS ORDERED: DEXT 5%/0.45% NACL 500ML 1,000 ML IV SCH (11:20)
[2023-06-09] MEDS ORDERED: DEXTROSE 10% WATER 500 ML IV ONE (12:30)
[2023-06-09 12:49] LABS: POTASSIUM 5.2 mEq/L (3.5-5.1)
[2023-06-09 12:56] LABS: CALCIUM 10.2 mg/dL (8.5-10.1); CREATININE 1.7 mg/dL (0.6-1.3); PHOSPHORUS 3.6 mg/dL (2.5-4.9)
[2023-06-09 13:00] LABS: HEMATOCRIT. 33.7 % (42.0-52.0); MEAN CORPUSCULAR HEMOGLOBIN 29.5 pg (28.0-32.0); MEAN CORPUSCULAR HGB CONC 32.5 g/dL (31.0-37.0); MEAN CORPUSCULAR VOLUME 90.9 fL (80.0-94.0); MEAN PLATELET VOLUME 8.1 fl (7.4-10.4); PLATELET 224 x1000/uL (130-400); RED BLOOD CELL COUNT 3.71 mill/uL (4.7-6.1); RED CELL DISTRIBUTION WIDTH 16.9 % (11.6-14.6); WHITE BLOOD COUNT 15.6 x1000/uL (4.5-11.0)
[2023-06-09 13:03] LABS: DIFFERENTIAL COMMENT 1
[2023-06-09] MEDS: DOPAMINE 400MG/250ML PREMIX 250 ML IV PRN (15:45)
[2023-06-09] MEDS: METHYLPHENIDATE HCL 5MG TABLET NG SCH ×2 (15:46→20:47)
[2023-06-09 16:26] LABS: BG BASE EXCESS -2.9 mmol/L (-2.0-2.0); BG CARBOXYHEMOGLOBIN 1.5 % (0.5-1.5); BG DEOXYHEMOGLOBIN 2.6 % (0.0-5.0); BG HCO3 ACT 24.4 mmol/L (22.0-26.0); BG METHEMOGLOBIN 0.3 % (0.0-1.5); BG OXYGEN SATURATION 97.4 % (92.0-98.5); BG OXYHEMOGLOBIN 95.6 % (94.0-97.0); BG PCO2 52.7 mmHg (35.0-45.0); BG PH 7.284 (7.350-7.450); BG PO2 95.1 mmHg (75.0-100.0); BG SAMPLE SITE RIGHT BRACHIAL; BG TOTAL HEMOGLOBIN 13.7 g/dL (12.0-18.0); BG VENT MODE VENT - CPAP
[2023-06-09 17:29] LABS: PLATELET ESTIMATE NORMAL
[2023-06-09 18:35] LABS: BASOPHILS % 0.4 % (0.0-2.0); EOSINOPHILS % 0.1 % (0.0-5.0); HEMATOCRIT. 38.2 % (42.0-52.0); HEMOGLOBIN. 12.5 g/dL (14.0-18.0); LYMPHOCYTES % 7.3 % (20.0-50.0); MEAN CORPUSCULAR HEMOGLOBIN 30.6 pg (28.0-32.0); MEAN CORPUSCULAR HGB CONC 32.8 g/dL (31.0-37.0); MEAN CORPUSCULAR VOLUME 93.3 fL (80.0-94.0); MEAN PLATELET VOLUME 8.1 fl (7.4-10.4); MONOCYTES % 6.8 % (2.0-8.0); NEUTROPHILS % 85.4 % (40.0-76.0); PLATELET 259 x1000/uL (130-400); RED BLOOD CELL COUNT 4.09 mill/uL (4.7-6.1); WHITE BLOOD COUNT 15.1 x1000/uL (4.5-11.0)
[2023-06-09 18:59] LABS: CALCIUM 10.1 mg/dL (8.5-10.1); CREATININE 1.9 mg/dL (0.6-1.3); PHOSPHORUS 3.7 mg/dL (2.5-4.9)
[2023-06-09] MEDS: ATORVASTATIN CALCIUM 40MG TABLET PO SCH (20:47)
[2023-06-09] MEDS: HYDROCODONE/ACETAMINOPHEN 10/325MG TABLET PO PRN (22:07)
[2023-06-09] MEDS ORDERED: ALBUMIN HUMAN 25GM/100ML (25%) IV NR (22:15)
[2023-06-09 22:57] LABS: BG BASE EXCESS -1.8 mmol/L (-2.0-2.0); BG CARBOXYHEMOGLOBIN 0.7 % (0.5-1.5); BG FRACTION INSPIRED OXYGEN 60; BG HCO3 ACT 25.2 mmol/L (22.0-26.0); BG METHEMOGLOBIN 0.1 % (0.0-1.5); BG OXYHEMOGLOBIN 97.2 % (94.0-97.0); BG PCO2 52.4 mmHg (35.0-45.0); BG PO2 111.7 mmHg (75.0-100.0); BG SAMPLE SITE LEFT RADIAL; BG TOTAL HEMOGLOBIN 13.3 g/dL (12.0-18.0); BG VENT MODE MASK - SIMPLE
[2023-06-09] MEDS: ALBUMIN HUMAN 25GM/100ML (25%) IV NR (23:56)
[2023-06-10] VITALS (105 sets, daily range): BP systolic 53–161; BP diastolic 41–123; PULSE 72–172; RESP 10–30; TEMP 98.3–99.3; O2SAT 96–99
[2023-06-10] MEDS: IPRATROPIUM/ALBUTEROL 0.5-3(2.5)MG/3ML NEB HHN SCH ×6 (00:18→20:19)
[2023-06-10 00:57] LABS: HEMATOCRIT 34.3 % (42.0-52.0); HEMOGLOBIN 11.5 g/dL (14.0-18.0); MEAN CORPUSCULAR HEMOGLOBIN 32.6 pg (28.0-32.0); MEAN CORPUSCULAR HGB CONC 33.5 g/dL (31.0-37.0); MEAN CORPUSCULAR VOLUME 97.2 fL (80.0-94.0); PLATELET 239 x1000/uL (130-400); RED BLOOD CELL COUNT 3.53 mill/uL (4.7-6.1); RED CELL DISTRIBUTION WIDTH 16.6 % (11.6-14.6); WHITE BLOOD COUNT 14.2 x1000/uL (4.5-11.0)
[2023-06-10] MEDS: BLOOD SUGAR DIAGNOSTIC STRIP TEST SCH ×17 (01:00→21:00)
[2023-06-10] MEDS: ONDANSETRON HCL 4MG/2ML INJ IV PRN ×2 (02:17→20:14)
[2023-06-10] MEDS: ALBUMIN HUMAN 25GM/100ML (25%) IV NR (02:17)
[2023-06-10] MEDS: HYDROCODONE/ACETAMINOPHEN 10/325MG TABLET PO PRN ×2 (02:41→12:29)
[2023-06-10] MEDS ORDERED: FUROSEMIDE 40MG/4ML VIAL IVP NR ×2 (03:00→14:45)
[2023-06-10 03:26] LABS: POTASSIUM 5.4 mEq/L (3.5-5.1)
[2023-06-10 03:30] LABS: CALCIUM 10.2 mg/dL (8.5-10.1); CREATININE 2.2 mg/dL (0.6-1.3)
[2023-06-10] MEDS: DEXT 5%/0.45% NACL 1000ML 500 ML IV SCH ×2 (03:49→10:54)
[2023-06-10 05:41] LABS: BASOPHILS % 0.4 % (0.0-2.0); EOSINOPHILS % 0.9 % (0.0-5.0); HEMATOCRIT. 31.9 % (42.0-52.0); HEMOGLOBIN. 10.8 g/dL (14.0-18.0); MEAN CORPUSCULAR HGB CONC 33.9 g/dL (31.0-37.0); MEAN CORPUSCULAR VOLUME 97.4 fL (80.0-94.0); MEAN PLATELET VOLUME 7.8 fl (7.4-10.4); MONOCYTES % 8.2 % (2.0-8.0); NEUTROPHILS % 78.5 % (40.0-76.0); PLATELET 202 x1000/uL (130-400); RED BLOOD CELL COUNT 3.27 mill/uL (4.7-6.1); RED CELL DISTRIBUTION WIDTH 16.6 % (11.6-14.6); WHITE BLOOD COUNT 10.8 x1000/uL (4.5-11.0)
[2023-06-10 05:56] LABS: POTASSIUM 4.5 mEq/L (3.5-5.1)
[2023-06-10 06:04] LABS: CALCIUM 9.9 mg/dL (8.5-10.1); CREATININE 2.1 mg/dL (0.6-1.3)
[2023-06-10] MEDS: PIPERACILLIN/TAZOBACTAM 3.375 G in DEXTROSE 5% WATER 50 ML IV SCH ×3 (06:46→22:02)
[2023-06-10] MEDS: ASPIRIN 81MG TABLET PO SCH (08:17)
[2023-06-10] MEDS: METHYLPHENIDATE HCL 5MG TABLET NG SCH ×2 (08:18→21:32)
[2023-06-10] MEDS: OXYCODONE HCL/ACETAMINOPHEN 5/325MG TABLET PO PRN ×2 (08:19→19:47)
[2023-06-10] MEDS: DEXT 5%/0.45% NACL 1000ML 1,000 ML IV SCH (08:19)
[2023-06-10] MEDS: CLOPIDOGREL 75MG TABLET PO SCH (08:20)
[2023-06-10] MEDS: BACITRACIN 15GM TUBE TOP SCH ×2 (08:20→16:16)
[2023-06-10] MEDS: CEFAZOLIN 1000MG PREMIX 50 ML IV SCH ×2 (08:22→15:31)
[2023-06-10 08:56] LABS: HEMATOCRIT 31.9 % (42.0-52.0); HEMOGLOBIN 10.9 g/dL (14.0-18.0); MEAN CORPUSCULAR HEMOGLOBIN 32.9 pg (28.0-32.0); MEAN CORPUSCULAR HGB CONC 34.2 g/dL (31.0-37.0); MEAN CORPUSCULAR VOLUME 96.2 fL (80.0-94.0); PLATELET 226 x1000/uL (130-400); RED BLOOD CELL COUNT 3.31 mill/uL (4.7-6.1); RED CELL DISTRIBUTION WIDTH 17.2 % (11.6-14.6); WHITE BLOOD COUNT 11.5 x1000/uL (4.5-11.0)
[2023-06-10 08:59] LABS: POTASSIUM 4.3 mEq/L (3.5-5.1)
[2023-06-10 09:06] LABS: CALCIUM 9.7 mg/dL (8.5-10.1)
[2023-06-10] MEDS: EPINEPHRINE 5 MG in DEXT 5% WATER 245 ML IV PRN (15:30)
[2023-06-10] MEDS: MIDODRINE HCL 5MG TABLET PO SCH (15:32)
[2023-06-10] MEDS ORDERED: DEXTROSE 50% WATER 50ML SYRINGE IV PRN (16:15)
[2023-06-10] MEDS: SODIUM CHLORIDE 0.45% 1,000 ML IV SCH (16:17)
[2023-06-10] MEDS: INSULIN LISPRO 100 UNITS/ML SUBCUT SCH ×2 (18:20→21:00)
[2023-06-10] MEDS ORDERED: MAGNESIUM 2 G PREMIX 50 ML IV NR (18:30)
[2023-06-10] MEDS ORDERED: AMIODARONE 150MG/100ML PREMIX 100 ML IV NR (18:30)
[2023-06-10] MEDS: AMIODARONE HCL 900 MG in DEXT 5% WATER 482 ML IV PRN (19:09)
[2023-06-10] MEDS: DOPAMINE 400MG/250ML PREMIX 250 ML IV PRN (19:10)
[2023-06-10] MEDS: ATORVASTATIN CALCIUM 40MG TABLET PO SCH (21:33)
[2023-06-10] MEDS ORDERED: BISACODYL 5MG TABLET PO PRN (22:00)
[2023-06-10] MEDS ORDERED: SENNOSIDES/DOCUSATE SOD 8.6/50MG TABLET PO PRN (22:00)
[2023-06-10] MEDS: MINERAL OIL 30ML BOTTLE PO SCH (22:19)
[2023-06-10 22:33] LABS: POTASSIUM 4.4 mEq/L (3.5-5.1)
[2023-06-10 22:38] LABS: CALCIUM 8.3 mg/dL (8.5-10.1); CREATININE 2.2 mg/dL (0.6-1.3)
[2023-06-10 22:44] LABS: BG BASE EXCESS -2.7 mmol/L (-2.0-2.0); BG CARBOXYHEMOGLOBIN 0.9 % (0.5-1.5); BG FRACTION INSPIRED OXYGEN 40; BG HCO3 ACT 24.1 mmol/L (22.0-26.0); BG OXYGEN SATURATION 92.9 % (92.0-98.5); BG OXYHEMOGLOBIN 92.1 % (94.0-97.0); BG PCO2 50.6 mmHg (35.0-45.0); BG PH 7.296 (7.350-7.450); BG PO2 68.1 mmHg (75.0-100.0); BG SAMPLE SITE RIGHT RADIAL; BG TOTAL HEMOGLOBIN 12.2 g/dL (12.0-18.0); BG VENT MODE NASAL CANNULA
[2023-06-10] MEDS: IPRATROPIUM BROMIDE (0.02%) 0.5MG/2.5ML NEB HHN SCH (22:49)
[2023-06-11] VITALS (94 sets, daily range): BP systolic 78–169; BP diastolic 30–120; PULSE 63–82; RESP 11–25; TEMP 98–100.2; O2SAT 96–99
[2023-06-11] MEDS: METOCLOPRAMIDE HCL 10MG/2ML VIAL IV SCH ×5 (00:18→23:34)
[2023-06-11] MEDS: IPRATROPIUM BROMIDE (0.02%) 0.5MG/2.5ML NEB HHN SCH ×5 (04:28→21:12)
[2023-06-11] MEDS: PIPERACILLIN/TAZOBACTAM 3.375 G in DEXTROSE 5% WATER 50 ML IV SCH ×3 (05:57→21:54)
[2023-06-11 06:11] LABS: BASOPHILS % 0.4 % (0.0-2.0); EOSINOPHILS % 1.8 % (0.0-5.0); HEMATOCRIT. 30.9 % (42.0-52.0); HEMOGLOBIN. 10.3 g/dL (14.0-18.0); LYMPHOCYTES % 11.4 % (20.0-50.0); MEAN CORPUSCULAR HEMOGLOBIN 31.5 pg (28.0-32.0); MEAN CORPUSCULAR HGB CONC 33.2 g/dL (31.0-37.0); MEAN CORPUSCULAR VOLUME 94.7 fL (80.0-94.0); MEAN PLATELET VOLUME 8.3 fl (7.4-10.4); MONOCYTES % 10.4 % (2.0-8.0); PLATELET 231 x1000/uL (130-400); RED BLOOD CELL COUNT 3.26 mill/uL (4.7-6.1); RED CELL DISTRIBUTION WIDTH 17.2 % (11.6-14.6); WHITE BLOOD COUNT 12.5 x1000/uL (4.5-11.0)
[2023-06-11 06:23] LABS: POTASSIUM 4.4 mEq/L (3.5-5.1)
[2023-06-11 06:28] LABS: CALCIUM 9.1 mg/dL (8.5-10.1); CREATININE 2.2 mg/dL (0.6-1.3)
[2023-06-11] MEDS: BLOOD SUGAR DIAGNOSTIC STRIP TEST SCH ×4 (07:04→21:00)
[2023-06-11] MEDS: INSULIN LISPRO 100 UNITS/ML SUBCUT SCH ×4 (08:10→21:00)
[2023-06-11] MEDS ORDERED: FUROSEMIDE 100MG/10ML VIAL IVP NR (08:15)
[2023-06-11] MEDS: BACITRACIN 15GM TUBE TOP SCH ×2 (09:00→17:00)
[2023-06-11] MEDS: AMIODARONE HCL 200 MG TABLET PO SCH ×2 (09:38→18:36)
[2023-06-11] MEDS: CLOPIDOGREL 75MG TABLET PO SCH (09:38)
[2023-06-11] MEDS: ASPIRIN 81MG TABLET PO SCH (09:38)
[2023-06-11] MEDS: METHYLPHENIDATE HCL 5MG TABLET NG SCH ×2 (09:38→20:42)
[2023-06-11] MEDS: FAMOTIDINE 20MG/2ML VIAL IV SCH (09:39)
[2023-06-11] MEDS: MIDODRINE HCL 5MG TABLET PO SCH ×3 (09:39→18:35)
[2023-06-11] MEDS: MINERAL OIL 30ML BOTTLE PO SCH ×2 (09:39→18:35)
[2023-06-11 11:23] LABS: BASOPHILS % 0.3 % (0.0-2.0); EOSINOPHILS % 1.8 % (0.0-5.0); HEMATOCRIT. 32.4 % (42.0-52.0); HEMOGLOBIN. 10.9 g/dL (14.0-18.0); LYMPHOCYTES % 11.6 % (20.0-50.0); MEAN CORPUSCULAR HEMOGLOBIN 32.1 pg (28.0-32.0); MEAN CORPUSCULAR HGB CONC 33.5 g/dL (31.0-37.0); MEAN CORPUSCULAR VOLUME 95.9 fL (80.0-94.0); MEAN PLATELET VOLUME 8.4 fl (7.4-10.4); MONOCYTES % 11.3 % (2.0-8.0); PLATELET 209 x1000/uL (130-400); RED BLOOD CELL COUNT 3.38 mill/uL (4.7-6.1); RED CELL DISTRIBUTION WIDTH 17.1 % (11.6-14.6); WHITE BLOOD COUNT 10.1 x1000/uL (4.5-11.0)
[2023-06-11] MEDS: AMIODARONE HCL 900 MG in DEXT 5% WATER 482 ML IV PRN (15:24)
[2023-06-11] MEDS ORDERED: FUROSEMIDE 40MG/4ML VIAL IVP NR (16:30)
[2023-06-11] MEDS: ATORVASTATIN CALCIUM 40MG TABLET PO SCH (20:42)
[2023-06-12] VITALS (85 sets, daily range): BP systolic 105–166; BP diastolic 44–120; PULSE 66–94; RESP 11–29; TEMP 97.6–99.5; O2SAT 95–99
[2023-06-12] MEDS: IPRATROPIUM BROMIDE (0.02%) 0.5MG/2.5ML NEB HHN SCH ×6 (01:13→20:27)
[2023-06-12] MEDS: PIPERACILLIN/TAZOBACTAM 3.375 G in DEXTROSE 5% WATER 50 ML IV SCH (05:08)
[2023-06-12] MEDS: METOCLOPRAMIDE HCL 10MG/2ML VIAL IV SCH ×3 (05:08→17:53)
[2023-06-12 05:31] LABS: HEMATOCRIT 32.4 % (42.0-52.0); HEMOGLOBIN 10.9 g/dL (14.0-18.0); MEAN CORPUSCULAR HEMOGLOBIN 31.1 pg (28.0-32.0); MEAN CORPUSCULAR HGB CONC 33.7 g/dL (31.0-37.0); MEAN CORPUSCULAR VOLUME 92.3 fL (80.0-94.0); PLATELET 237 x1000/uL (130-400); RED BLOOD CELL COUNT 3.52 mill/uL (4.7-6.1); RED CELL DISTRIBUTION WIDTH 17.4 % (11.6-14.6); WHITE BLOOD COUNT 10.7 x1000/uL (4.5-11.0)
[2023-06-12 05:51] LABS: CALCIUM 8.4 mg/dL (8.5-10.1); CREATININE 2.3 mg/dL (0.6-1.3)
[2023-06-12] MEDS: INSULIN LISPRO 100 UNITS/ML SUBCUT SCH ×4 (07:47→20:27)
[2023-06-12] MEDS: BLOOD SUGAR DIAGNOSTIC STRIP TEST SCH ×4 (07:47→20:20)
[2023-06-12] MEDS: AMIODARONE HCL 200 MG TABLET PO SCH ×2 (08:43→16:10)
[2023-06-12] MEDS: METHYLPHENIDATE HCL 5MG TABLET NG SCH ×2 (08:43→20:26)
[2023-06-12] MEDS: CLOPIDOGREL 75MG TABLET PO SCH (08:43)
[2023-06-12] MEDS: ASPIRIN 81MG TABLET PO SCH (08:43)
[2023-06-12] MEDS: BACITRACIN 15GM TUBE TOP SCH ×2 (08:44→16:02)
[2023-06-12] MEDS: KCL 10MEQ/50ML PREMIX 100 ML IV PRN (08:44)
[2023-06-12] MEDS: MAGNESIUM 2 G PREMIX 50 ML IV PRN (08:44)
[2023-06-12] MEDS: MIDODRINE HCL 5MG TABLET PO SCH ×3 (08:46→16:00)
[2023-06-12] MEDS: OXYCODONE HCL/ACETAMINOPHEN 5/325MG TABLET PO PRN ×2 (12:49→19:57)
[2023-06-12] MEDS ORDERED: MAGNESIUM 2 G PREMIX 50 ML IV NR (14:30)
[2023-06-12] MEDS ORDERED: FUROSEMIDE 40MG/4ML VIAL IVP NR (14:30)
[2023-06-12] MEDS: TAMSULOSIN HCL 0.4MG SR CAPSULE PO SCH (16:09)
[2023-06-12] MEDS: ATORVASTATIN CALCIUM 40MG TABLET PO SCH (20:26)
[2023-06-13] VITALS (12 sets, daily range): BP systolic 100–148; BP diastolic 58–83; PULSE 98–152; RESP 15–24; TEMP 97–98; O2SAT 97–100
[2023-06-13] MEDS: METOCLOPRAMIDE HCL 10MG/2ML VIAL IV SCH ×4 (00:24→17:51)
[2023-06-13] MEDS ORDERED: AMIODARONE 150MG/100ML PREMIX 100 ML IV NR ×2 (00:30→11:00)
[2023-06-13] MEDS: IPRATROPIUM BROMIDE (0.02%) 0.5MG/2.5ML NEB HHN SCH ×4 (00:53→13:49)
[2023-06-13] MEDS: AMIODARONE 150MG/100ML PREMIX 100 ML IV PRN ×2 (04:05→07:03)
[2023-06-13] MEDS: OXYCODONE HCL/ACETAMINOPHEN 5/325MG TABLET PO PRN ×2 (04:13→15:10)
[2023-06-13] MEDS: BLOOD SUGAR DIAGNOSTIC STRIP TEST SCH ×4 (06:35→21:25)
[2023-06-13] MEDS: INSULIN LISPRO 100 UNITS/ML SUBCUT SCH ×4 (07:20→21:00)
[2023-06-13] MEDS: FAMOTIDINE 20MG/2ML VIAL IV SCH (08:59)
[2023-06-13] MEDS: CLOPIDOGREL 75MG TABLET PO SCH (08:59)
[2023-06-13] MEDS: BACITRACIN 15GM TUBE TOP SCH ×2 (09:00→17:00)
[2023-06-13] MEDS ORDERED: FUROSEMIDE 40MG/4ML VIAL IVP NR (09:00)
[2023-06-13] MEDS: MIDODRINE HCL 5MG TABLET PO SCH ×3 (09:00→17:51)
[2023-06-13] MEDS: ASPIRIN 81MG TABLET PO SCH (09:00)
[2023-06-13] MEDS ORDERED: KCL 20MEQ/100ML PREMIX 100 ML IV NR ×2 (09:00→11:00)
[2023-06-13] MEDS: TAMSULOSIN HCL 0.4MG SR CAPSULE PO SCH (09:00)
[2023-06-13] MEDS: METHYLPHENIDATE HCL 5MG TABLET NG SCH ×2 (09:01→21:32)
[2023-06-13] MEDS: AMIODARONE HCL 200 MG TABLET PO SCH ×2 (09:01→17:51)
[2023-06-13] MEDS ORDERED: MAGNESIUM 2 G PREMIX 50 ML IV NR (11:00)
[2023-06-13 13:42] LABS: BASOPHILS % 0.6 % (0.0-2.0); EOSINOPHILS % 1.9 % (0.0-5.0); HEMATOCRIT. 33.4 % (42.0-52.0); HEMOGLOBIN. 11.3 g/dL (14.0-18.0); LYMPHOCYTES % 17.6 % (20.0-50.0); MEAN CORPUSCULAR HEMOGLOBIN 32.1 pg (28.0-32.0); MEAN CORPUSCULAR HGB CONC 33.9 g/dL (31.0-37.0); MEAN CORPUSCULAR VOLUME 94.6 fL (80.0-94.0); MEAN PLATELET VOLUME 8.4 fl (7.4-10.4); MONOCYTES % 14.5 % (2.0-8.0); NEUTROPHILS % 65.4 % (40.0-76.0); PLATELET 241 x1000/uL (130-400); RED BLOOD CELL COUNT 3.53 mill/uL (4.7-6.1); WHITE BLOOD COUNT 7.3 x1000/uL (4.5-11.0)
[2023-06-13 13:52] LABS: POTASSIUM 3.1 mEq/L (3.5-5.1)
[2023-06-13 14:01] LABS: CALCIUM 8.6 mg/dL (8.5-10.1); CREATININE 2.2 mg/dL (0.6-1.3)
[2023-06-13] MEDS: DIGOXIN 125MCG TABLET PO SCH (17:52)
[2023-06-13] MEDS: ATORVASTATIN CALCIUM 40MG TABLET PO SCH (21:33)
[2023-06-13] MEDS ORDERED: OXYCODONE HCL/ACETAMINOPHEN 5/325MG TABLET PO NR (23:15)
[2023-06-14] VITALS (10 sets, daily range): BP systolic 105–129; BP diastolic 56–82; PULSE 87–148; RESP 15–23; TEMP 98.3–99; O2SAT 95–100
[2023-06-14] MEDS: METOCLOPRAMIDE HCL 10MG/2ML VIAL IV SCH ×4 (00:58→18:44)
[2023-06-14 05:56] LABS: HEMATOCRIT. 32.7 % (42.0-52.0); HEMOGLOBIN. 10.9 g/dL (14.0-18.0); MEAN CORPUSCULAR HEMOGLOBIN 30.9 pg (28.0-32.0); MEAN CORPUSCULAR HGB CONC 33.2 g/dL (31.0-37.0); MEAN CORPUSCULAR VOLUME 92.9 fL (80.0-94.0); MEAN PLATELET VOLUME 8.4 fl (7.4-10.4); PLATELET 221 x1000/uL (130-400); RED BLOOD CELL COUNT 3.52 mill/uL (4.7-6.1); RED CELL DISTRIBUTION WIDTH 17.1 % (11.6-14.6); WHITE BLOOD COUNT 6.8 x1000/uL (4.5-11.0)
[2023-06-14] MEDS: BLOOD SUGAR DIAGNOSTIC STRIP TEST SCH ×4 (06:43→21:10)
[2023-06-14 07:18] LABS: DIFFERENTIAL COMMENT 1
[2023-06-14] MEDS: INSULIN LISPRO 100 UNITS/ML SUBCUT SCH ×4 (07:20→21:00)
[2023-06-14 08:25] LABS: CALCIUM 8.5 mg/dL (8.5-10.1); POTASSIUM 3.3 mEq/L (3.5-5.1)
[2023-06-14 08:34] LABS: CREATININE 2.3 mg/dL (0.6-1.3)
[2023-06-14] MEDS: MIDODRINE HCL 5MG TABLET PO SCH (08:42)
[2023-06-14] MEDS: TAMSULOSIN HCL 0.4MG SR CAPSULE PO SCH (08:43)
[2023-06-14] MEDS: ASPIRIN 81MG TABLET PO SCH (08:43)
[2023-06-14] MEDS: METHYLPHENIDATE HCL 5MG TABLET NG SCH ×2 (08:43→21:22)
[2023-06-14] MEDS: AMIODARONE HCL 200 MG TABLET PO SCH ×3 (08:44→15:17)
[2023-06-14] MEDS: BACITRACIN 15GM TUBE TOP SCH ×2 (09:00→17:22)
[2023-06-14] MEDS ORDERED: FUROSEMIDE 40MG/4ML VIAL IVP NR (09:00)
[2023-06-14] MEDS: OXYCODONE HCL/ACETAMINOPHEN 5/325MG TABLET PO PRN ×3 (09:10→21:37)
[2023-06-14] MEDS ORDERED: POTASSIUM CHLORIDE 20MEQ/PACKET PO ONE (09:15)
[2023-06-14] MEDS: IPRATROPIUM BROMIDE (0.02%) 0.5MG/2.5ML NEB HHN SCH ×4 (09:25→20:38)
[2023-06-14] MEDS ORDERED: AMIODARONE 150MG/100ML PREMIX 100 ML IV NR (10:00)
[2023-06-14] MEDS: METOPROLOL TARTRATE 25MG TABLET PO SCH ×2 (10:28→21:22)
[2023-06-14] MEDS: APIXABAN 2.5 MG TABLET PO SCH ×2 (10:28→17:22)
[2023-06-14] MEDS: DIGOXIN 125MCG TABLET PO SCH (17:26)
[2023-06-14 18:25] LABS: ANISOCYTOSIS 1+; PLATELET ESTIMATE NORMAL
[2023-06-14] MEDS ORDERED: MIRA25TA PO (19:43)
[2023-06-14] MEDS: ATORVASTATIN CALCIUM 40MG TABLET PO SCH (21:22)
[2023-06-15] VITALS (8 sets, daily range): BP systolic 118–137; BP diastolic 53–68; PULSE 72–84; RESP 14–20; TEMP 97.7–99; O2SAT 95–97
[2023-06-15] MEDS: METOCLOPRAMIDE HCL 10MG/2ML VIAL IV SCH ×3 (00:15→12:11)
[2023-06-15] MEDS: IPRATROPIUM BROMIDE (0.02%) 0.5MG/2.5ML NEB HHN SCH ×2 (01:15→04:42)
[2023-06-15] MEDS: BLOOD SUGAR DIAGNOSTIC STRIP TEST SCH ×2 (06:39→11:50)
[2023-06-15] MEDS: OXYCODONE HCL/ACETAMINOPHEN 5/325MG TABLET PO PRN ×2 (06:47→13:30)
[2023-06-15] MEDS: INSULIN LISPRO 100 UNITS/ML SUBCUT SCH ×2 (07:20→12:08)
[2023-06-15] MEDS ORDERED: FUROSEMIDE 40MG/4ML VIAL IVP NR (07:45)
[2023-06-15] MEDS: APIXABAN 2.5 MG TABLET PO SCH (08:46)
[2023-06-15] MEDS: AMIODARONE HCL 200 MG TABLET PO SCH (08:46)
[2023-06-15] MEDS: ASPIRIN 81MG TABLET PO SCH (08:46)
[2023-06-15] MEDS: METHYLPHENIDATE HCL 5MG TABLET NG SCH (08:46)
[2023-06-15] MEDS: FAMOTIDINE 20MG/2ML VIAL IV SCH (08:46)
[2023-06-15] MEDS: TAMSULOSIN HCL 0.4MG SR CAPSULE PO SCH (08:47)
[2023-06-15] MEDS: METOPROLOL TARTRATE 25MG TABLET PO SCH (08:47)
[2023-06-15] MEDS ORDERED: MAGNESIUM 2 G PREMIX 50 ML IV SCH (09:00)
[2023-06-15] MEDS: BACITRACIN 15GM TUBE TOP SCH (09:00)
[2023-06-16] MEDS ORDERED: AMIODARONE HCL 200 MG TABLET PO SCH (09:00)
[2023-06-16] MEDS ORDERED: METOPROLOL SUCCINATE 50MG ER TABLET PO SCH (09:00)
== END 2023-06-15 14:50 | DRG 233 ==
LOC: ER 15:46 → MICUSO 20:54 → EDBEDREQ 20:58 → EDBEDREQSVC 20:58 → 8WST 06-04 13:46 → 3WST 06-06 13:18 → CVICU 06-08 15:46 → 3WST 06-12 21:20
PROVIDERS: ADMIT Internal Medicine; ATTEND Internal Medicine
PROC: 4A023N7 Measurement of Cardiac Sampling and Pressure, Left Heart, Percutaneous Approach (ICD-10-PCS; 2023-06-06)
PROC: B211YZZ Fluoroscopy of Multiple Coronary Arteries using Other Contrast (ICD-10-PCS; 2023-06-06)
PROC: 02100Z8 Bypass Coronary Artery, One Artery from Right Internal Mammary, Open Approach (ICD-10-PCS; principal; 2023-06-08)
PROC: 02100Z9 Bypass Coronary Artery, One Artery from Left Internal Mammary, Open Approach (ICD-10-PCS; 2023-06-08)
PROC: 30243N1 Transfusion of Nonautologous Red Blood Cells into Central Vein, Percutaneous Approach (ICD-10-PCS; 2023-06-09)
DX: I21.4 Non-ST elevation (NSTEMI) myocardial infarction (principal); I50.23 Acute on chronic systolic (congestive) heart failure; N17.9 Acute kidney failure, unspecified; I16.1 Hypertensive emergency; I47.10 Supraventricular tachycardia, unspecified; I25.10 Atherosclerotic heart disease of native coronary artery without angina pectoris; E78.00 Pure hypercholesterolemia, unspecified; F10.10 Alcohol abuse, uncomplicated; J44.9 Chronic obstructive pulmonary disease, unspecified; D64.9 Anemia, unspecified; F17.210 Nicotine dependence, cigarettes, uncomplicated; I11.0 Hypertensive heart disease with heart failure; E11.51 Type 2 diabetes mellitus with diabetic peripheral angiopathy without gangrene; L89.159 Pressure ulcer of sacral region, unspecified stage; I48.91 Unspecified atrial fibrillation; Z79.01 Long term (current) use of anticoagulants; Z89.612 Acquired absence of left leg above knee; Z89.512 Acquired absence of left leg below knee; Z98.61 Coronary angioplasty status; Z89.511 Acquired absence of right leg below knee; Z79.4 Long term (current) use of insulin
CPT/HCPCS: 36415; 36600; 71045; 74176; 80048; 80053; 81003; 82375; 82550; 82553; 82607; 82728; 82746; 82805; 82947; 82962; 83036; 83540; 83550; 83605; 83735; 84100; 84132; 84439; 84443; 84481; 84484; 85014; 85018; 85025; 85027; 85347; 86850; 86900; 86920; 87015; 87045; 87426; 87427; 87449; 92610; 93005; 93306; 93458; 93880; 94002; 94003; 94640; 97110; 97162; 97167; 97530; 97535; 99291; A6261; C1729; C1751; C1758; C1769; C1887; C1893; C9113; J0282; J0690; J1200; J1250; J1265; J1644; J1650; J1815; J1885; J1940; J2250; J2405; J2440; J2543; J2710; J2720; J2765; J3010; J3370; J3475; J3480; J3490; J7030; J7060; L3908; P9016; P9041; P9047; Q9957; Q9963; Q9967

== ENCOUNTER 2023-07-19 17:27 | Inpatient (IN) | payer BC, MEDICAID ==
[~2023-07-19] VITALS: Ht 124.5 cm; Wt 51.7 kg
[~2023-07-19 17:27] MED LIST changes: +ALBU18HF2 INH; -CLON-493 PO; +CLON0.1T PO; -HYDR-3933 PO; +HYDR-4009 PO; -LIDO700A TP; -LORA2ORA5 PO; -METF-414 PO; +METF-818 PO; +MIRA25TA PO; -MUPI15CR11 TP; -OXYC-159 PO; -PRAV20TA57 PO; -TRAZ-252 MT
[2023-07-19] MEDS ORDERED: LACTATED RINGERS 1,000 ML IV SCH (17:45)
[2023-07-19] MEDS ORDERED: VANCOMYCIN 1G PREMIX 200 ML IV SCH (17:45)
[2023-07-19 17:54] LABS: BASOPHILS % 0.5 % (0.0-2.0); EOSINOPHILS % 0.9 % (0.0-5.0); HEMATOCRIT. 31.8 % (42.0-52.0); HEMOGLOBIN. 9.9 g/dL (14.0-18.0); LYMPHOCYTES % 16.3 % (20.0-50.0); MEAN CORPUSCULAR HEMOGLOBIN 29.4 pg (28.0-32.0); MEAN CORPUSCULAR HGB CONC 31.2 g/dL (31.0-37.0); MEAN CORPUSCULAR VOLUME 94.2 fL (80.0-94.0); MEAN PLATELET VOLUME 7.9 fl (7.4-10.4); NEUTROPHILS % 75.3 % (40.0-76.0); PLATELET 282 x1000/uL (130-400); RED BLOOD CELL COUNT 3.37 mill/uL (4.7-6.1); RED CELL DISTRIBUTION WIDTH 18.2 % (11.6-14.6)
[2023-07-19] MEDS ORDERED: ACETAMINOPHEN 650MG SUPP PR SCH (18:00)
[2023-07-19 18:06] LABS: BG BASE EXCESS 2.7 mmol/L (-2.0-2.0); BG CARBOXYHEMOGLOBIN 0.3 % (0.5-1.5); BG DEOXYHEMOGLOBIN 1.8 % (0.0-5.0); BG HCO3 ACT 28.7 mmol/L (22.0-26.0); BG METHEMOGLOBIN 0.4 % (0.0-1.5); BG OXYGEN SATURATION 98.2 % (92.0-98.5); BG OXYHEMOGLOBIN 97.5 % (94.0-97.0); BG PCO2 51.3 mmHg (35.0-45.0); BG PH 7.366 (7.350-7.450); BG PO2 111.6 mmHg (75.0-100.0); BG SAMPLE SITE RIGHT BRACHIAL; BG VENT MODE VAPOTHERM
[2023-07-19] MEDS: CEFEPIME 2,000 MG in DEXT 5% WATER 100 ML IV SCH (18:09)
[2023-07-19 18:13] LABS: ALANINE AMINOTRANSFERASE 20 IU/L (10-49); ALBUMIN 3.1 g/dL (3.2-4.8); ASPARTATE AMINOTRANSFERASE 26 IU/L (<34); BILIRUBIN TOTAL 0.7 mg/dL (0.1-1.0); CALCIUM 8.4 mg/dL (8.7-10.4); CARBON DIOXIDE 31 mEq/L (21-32); CHLORIDE 100 mEq/L (98-107); CREATININE 1.6 mg/dL (0.6-1.3); GLUCOSE 93 mg/dL (70-105); POTASSIUM 5.7 mEq/L (3.5-5.1); PROTEIN TOTAL 6.6 g/dL (6.0-8.3); SODIUM 137 mEq/L (136-145); TROPONIN I HIGH SENSITIVITY 31 ng/L (3.0-53); UREA NITROGEN BLOOD 26 mg/dL (9-23)
[2023-07-19] MEDS ORDERED: NOREPINEPHRINE 8MG/250ML PMX 250 ML IV ONE ×2 (20:30)
[2023-07-19] MEDS ORDERED: ACETAMINOPHEN 325MG TABLET PO PRN ×2 (20:45)
[2023-07-19] MEDS ORDERED: GUAIFENESIN 200MG/10ML SUGAR FREE UDC PO PRN (20:45)
[2023-07-19] MEDS ORDERED: METHYLPREDNISOLONE SOD SUCC 125MG/2ML (ACT-O-VIAL) IV NR (20:45)
[2023-07-19] MEDS ORDERED: MAGNESIUM/ALUMINUM HYDROXIDE/SIMETHICONE 30ML UDC PO PRN (20:45)
[2023-07-19] MEDS ORDERED: DOCUSATE SODIUM 100MG CAPSULE PO PRN (20:45)
[2023-07-19] MEDS ORDERED: CLONIDINE 0.1MG TABLET PO PRN (20:45)
[2023-07-19 20:50] VITALS: PULSE 61; RESP 18
[2023-07-19] MEDS ORDERED: FENTANYL 2500MCG/250ML PMX 250 ML IV ONE (21:00)
[2023-07-19 21:23] LABS: CREATINE KINASE 28 IU/L (46-171); TROPONIN I HIGH SENSITIVITY 29 ng/L (3.0-53)
[2023-07-19] MEDS ORDERED: FENTANYL CITRATE 2,500 MCG in SODIUM CHLORIDE 0.9% 200 ML IV ONE (21:45)
[2023-07-19 22:01] LABS: BG CARBOXYHEMOGLOBIN 0.1 % (0.5-1.5); BG DEOXYHEMOGLOBIN 0.9 % (0.0-5.0); BG FRACTION INSPIRED OXYGEN 100; BG HCO3 ACT 26.7 mmol/L (22.0-26.0); BG METHEMOGLOBIN 0.6 % (0.0-1.5); BG OXYGEN SATURATION 99.1 % (92.0-98.5); BG OXYHEMOGLOBIN 98.4 % (94.0-97.0); BG PCO2 61.4 mmHg (35.0-45.0); BG PH 7.257 (7.350-7.450); BG PO2 153.4 mmHg (75.0-100.0); BG SAMPLE SITE LEFT RADIAL; BG TOTAL HEMOGLOBIN 10.1 g/dL (12.0-18.0); BG TOTAL RESPIRATORY RATE 18 b/min; BG VENT MODE VENT - AC
[2023-07-19 23:15] VITALS: BP 86/41; PULSE 65; RESP 22; TEMP 97.6
[2023-07-19 23:17] LABS: CLARITY URINE CLEAR (CLEAR); COLOR URINE YELLOW (YELLOW); GLUCOSE URINE NEGATIVE (NEGATIVE); KETONES URINE NEGATIVE (NEGATIVE); LEUKOCYTE ESTERASE URINE NEGATIVE (NEGATIVE); NITRITE URINE NEGATIVE (NEGATIVE); OCCULT BLOOD URINE NEGATIVE (NEGATIVE); PH URINE 7.5 (4.5-8.0); PROTEIN URINE TRACE (NEGATIVE); SPECIFIC GRAVITY URINE 1.011 (1.005-1.030)
[2023-07-19 23:30] VITALS: BP 111/40; PULSE 76; RESP 22
[2023-07-19 23:32] LABS: *AMPHETAMINES SCREEN URINE NEGATIVE (NEGATIVE); *BARBITURATES SCREEN URINE NEGATIVE (NEGATIVE); *BENZODIAZEPINES SCREEN URINE NEGATIVE (NEGATIVE); *COCAINE SCREEN URINE NEGATIVE (NEGATIVE); CANNABINOID URINE SCREEN NEGATIVE (NEGATIVE); ECSTASY MDMA SCREEN URINE NEGATIVE (NEGATIVE); METHADONE URINE SCREEN Neg (NEGATIVE); OPIATES URINE SCREEN PRESUMPTIVE POSITIVE (NEGATIVE); PHENCYCLIDINE URINE SCREEN NEGATIVE (NEGATIVE)
[2023-07-19 23:45] VITALS: BP 162/53; PULSE 62; RESP 22
[2023-07-19 23:45] LABS: BACTERIA URINE NONE SEEN; RBC URINE NONE SEEN /hpf (0-2); SQUAMOUS EPITHELIAL CELL URINE NONE SEEN /lpf (RARE/1+); WBC URINE NONE SEEN /hpf (0-2)
[2023-07-19] MEDS ORDERED: NOREPINEPHRINE 32 MG in DEXT 5% WATER 218 ML IV PRN (23:45)
[2023-07-20] VITALS (116 sets, daily range): BP systolic 66–205; BP diastolic 34–94; PULSE 59–102; RESP 17–26; TEMP 97.6–99
[2023-07-20] MEDS ORDERED: DEXTROSE 50% WATER 50ML SYRINGE IV PRN
[2023-07-20] MEDS ORDERED: FENTANYL 2500MCG/250ML PMX 250 ML IV ONE
[2023-07-20] MEDS ORDERED: DEXT 5%/0.45% NACL 1000ML 1,000 ML IV SCH (00:15)
[2023-07-20] MEDS ORDERED: PHENYLEPHRINE 100 MG in DEXT 5% WATER 240 ML IV PRN (00:15)
[2023-07-20] MEDS: BLOOD SUGAR DIAGNOSTIC STRIP TEST SCH ×4 (00:16→17:19)
[2023-07-20] MEDS: FENTANYL CITRATE 2,500 MCG in SODIUM CHLORIDE 0.9% 200 ML IV PRN (00:50)
[2023-07-20] MEDS: NOREPINEPHRINE 32 MG in DEXT 5% WATER 218 ML IV PRN (00:52)
[2023-07-20] MEDS: DEXT 5%/0.9% NACL 1,000 ML IV SCH ×3 (01:18→17:19)
[2023-07-20] MEDS ORDERED: METHYLPREDNISOLONE SOD SUCC 125MG/2ML (ACT-O-VIAL) IV NR (05:00)
[2023-07-20] MEDS: CEFEPIME 2,000 MG in DEXT 5% WATER 100 ML IV SCH ×2 (05:45→08:33)
[2023-07-20 05:57] LABS: BASOPHILS % 0.4 % (0.0-2.0); EOSINOPHILS % 0.5 % (0.0-5.0); HEMATOCRIT. 27.5 % (42.0-52.0); HEMOGLOBIN. 8.8 g/dL (14.0-18.0); LYMPHOCYTES % 24.4 % (20.0-50.0); MEAN CORPUSCULAR HEMOGLOBIN 30.4 pg (28.0-32.0); MEAN CORPUSCULAR HGB CONC 31.9 g/dL (31.0-37.0); MEAN CORPUSCULAR VOLUME 95.5 fL (80.0-94.0); MEAN PLATELET VOLUME 7.8 fl (7.4-10.4); MONOCYTES % 4.8 % (2.0-8.0); NEUTROPHILS % 69.9 % (40.0-76.0); PLATELET 265 x1000/uL (130-400); RED BLOOD CELL COUNT 2.88 mill/uL (4.7-6.1); RED CELL DISTRIBUTION WIDTH 17.4 % (11.6-14.6); WHITE BLOOD COUNT 9.8 x1000/uL (4.5-11.0)
[2023-07-20] MEDS: INSULIN LISPRO 100 UNITS/ML SUBCUT SCH ×4 (05:57→17:24)
[2023-07-20 06:19] LABS: ALANINE AMINOTRANSFERASE 17 IU/L (10-49); ALBUMIN 2.6 g/dL (3.2-4.8); ASPARTATE AMINOTRANSFERASE 24 IU/L (<34); BILIRUBIN TOTAL 0.7 mg/dL (0.1-1.0); CALCIUM 7.7 mg/dL (8.7-10.4); CARBON DIOXIDE 29 mEq/L (21-32); CHLORIDE 102 mEq/L (98-107); CREATININE 1.5 mg/dL (0.6-1.3); GLUCOSE 128 mg/dL (70-105); POTASSIUM 4.8 mEq/L (3.5-5.1); PROTEIN TOTAL 5.2 g/dL (6.0-8.3); SODIUM 137 mEq/L (136-145); T4 FREE 1.12 ng/dL (0.89-1.76); THYROID STIMULATING HORMONE 4.07 uIU/mL (0.55-4.78); UREA NITROGEN BLOOD 26 mg/dL (9-23)
[2023-07-20 08:12] LABS: BG BASE EXCESS 0.9 mmol/L (-2.0-2.0); BG CARBOXYHEMOGLOBIN 0.3 % (0.5-1.5); BG DEOXYHEMOGLOBIN 0.5 % (0.0-5.0); BG FRACTION INSPIRED OXYGEN 80; BG HCO3 ACT 25.3 mmol/L (22.0-26.0); BG METHEMOGLOBIN 0.3 % (0.0-1.5); BG OXYGEN SATURATION 99.5 % (92.0-98.5); BG OXYHEMOGLOBIN 98.9 % (94.0-97.0); BG PCO2 39.4 mmHg (35.0-45.0); BG PH 7.425 (7.350-7.450); BG PO2 241.7 mmHg (75.0-100.0); BG SAMPLE SITE RIGHT BRACHIAL; BG VENT MODE VENT - AC/VC
[2023-07-20] MEDS: PANTOPRAZOLE SODIUM 40 MG/VIAL IV SCH (08:57)
[2023-07-20] MEDS ORDERED: AZITHROMYCIN 500 MG in DEXT 5% WATER 250 ML IV SCH (09:00)
[2023-07-20] MEDS ORDERED: ENOXAPARIN 30MG/0.3ML SYR SUBCUT SCH ×2 (09:00→15:00)
[2023-07-20] MEDS: AZITHROMYCIN 500 MG in DEXT 5% WATER 250 ML IV SCH (10:20)
[2023-07-20] MEDS ORDERED: ENOXAPARIN 30MG/0.3ML SYR SUBCUT NR (15:00)
[2023-07-20] MEDS: ACETYLCYSTEINE 200MG/ML 20% VIAL 4ML INH SCH ×2 (15:20→20:30)
[2023-07-20] MEDS: IPRATROPIUM/ALBUTEROL 0.5-3(2.5)MG/3ML NEB HHN PRN ×2 (15:21→20:31)
[2023-07-20] MEDS: VANCOMYCIN 500MG PREMIX 100 ML IV SCH (17:27)
[2023-07-20] MEDS ORDERED: VANCOMYCIN 750MG PREMIX 150 ML IV SCH (18:00)
[2023-07-21] VITALS (103 sets, daily range): BP systolic 88–176; BP diastolic 35–127; PULSE 57–77; RESP 10–32; TEMP 97.8–98.8
[2023-07-21] MEDS: INSULIN LISPRO 100 UNITS/ML SUBCUT SCH ×4 (00:37→17:05)
[2023-07-21] MEDS: BLOOD SUGAR DIAGNOSTIC STRIP TEST SCH ×4 (00:40→17:05)
[2023-07-21] MEDS: DEXT 5%/0.9% NACL 1,000 ML IV SCH ×2 (05:56→20:53)
[2023-07-21 06:11] LABS: BASOPHILS % 0.1 % (0.0-2.0); HEMATOCRIT. 28.8 % (42.0-52.0); HEMOGLOBIN. 8.9 g/dL (14.0-18.0); LYMPHOCYTES % 11.9 % (20.0-50.0); MEAN CORPUSCULAR HEMOGLOBIN 28.6 pg (28.0-32.0); MEAN CORPUSCULAR HGB CONC 30.8 g/dL (31.0-37.0); MEAN PLATELET VOLUME 7.8 fl (7.4-10.4); MONOCYTES % 7.1 % (2.0-8.0); NEUTROPHILS % 80.9 % (40.0-76.0); PLATELET 336 x1000/uL (130-400); RED BLOOD CELL COUNT 3.09 mill/uL (4.7-6.1); RED CELL DISTRIBUTION WIDTH 17.9 % (11.6-14.6); WHITE BLOOD COUNT 13.9 x1000/uL (4.5-11.0)
[2023-07-21 06:19] LABS: CALCIUM 8.1 mg/dL (8.7-10.4); CREATININE 1.3 mg/dL (0.6-1.3); POTASSIUM 4.4 mEq/L (3.5-5.1)
[2023-07-21 06:23] LABS: INR 1.2; PROTHROMBIN TIME 12.5 sec (9.6-11.0)
[2023-07-21] MEDS: IPRATROPIUM/ALBUTEROL 0.5-3(2.5)MG/3ML NEB HHN PRN ×2 (08:26→14:18)
[2023-07-21] MEDS: ACETYLCYSTEINE 200MG/ML 20% VIAL 4ML INH SCH ×2 (08:26→14:18)
[2023-07-21] MEDS: PANTOPRAZOLE SODIUM 40 MG/VIAL IV SCH (08:29)
[2023-07-21] MEDS: CEFEPIME 2,000 MG in DEXT 5% WATER 100 ML IV SCH (08:30)
[2023-07-21] MEDS: ASPIRIN 81MG TABLET PO SCH (08:30)
[2023-07-21] MEDS: AZITHROMYCIN 500 MG in DEXT 5% WATER 250 ML IV SCH (08:59)
[2023-07-21 09:13] LABS: BG BASE EXCESS -0.5 mmol/L (-2.0-2.0); BG DEOXYHEMOGLOBIN 1.4 % (0.0-5.0); BG FRACTION INSPIRED OXYGEN 35; BG HCO3 ACT 22.5 mmol/L (22.0-26.0); BG METHEMOGLOBIN 0.2 % (0.0-1.5); BG OXYGEN SATURATION 98.6 % (92.0-98.5); BG OXYHEMOGLOBIN 98.4 % (94.0-97.0); BG PCO2 30.8 mmHg (35.0-45.0); BG PH 7.482 (7.350-7.450); BG PO2 120.1 mmHg (75.0-100.0); BG SAMPLE SITE LEFT RADIAL; BG TOTAL HEMOGLOBIN 9.2 g/dL (12.0-18.0); BG VENT MODE VENT - AC
[2023-07-21] MEDS: ENOXAPARIN 60MG/0.6ML SYR SUBCUT SCH (14:50)
[2023-07-21] MEDS: VANCOMYCIN 500MG PREMIX 100 ML IV SCH (17:05)
[2023-07-21] MEDS: NOREPINEPHRINE 32 MG in DEXT 5% WATER 218 ML IV PRN (18:52)
[2023-07-22] VITALS (94 sets, daily range): BP systolic 100–149; BP diastolic 41–71; PULSE 57–85; RESP 9–26; TEMP 97.8–98.8
[2023-07-22] MEDS: BLOOD SUGAR DIAGNOSTIC STRIP TEST SCH ×4 (00:36→18:42)
[2023-07-22 04:19] LABS: BASOPHILS % 0.1 % (0.0-2.0); EOSINOPHILS % 0.6 % (0.0-5.0); HEMATOCRIT. 23.7 % (42.0-52.0); HEMOGLOBIN. 7.4 g/dL (14.0-18.0); LYMPHOCYTES % 14.3 % (20.0-50.0); MEAN CORPUSCULAR HEMOGLOBIN 29.3 pg (28.0-32.0); MEAN CORPUSCULAR HGB CONC 31.4 g/dL (31.0-37.0); MEAN CORPUSCULAR VOLUME 93.3 fL (80.0-94.0); MEAN PLATELET VOLUME 7.7 fl (7.4-10.4); MONOCYTES % 6.5 % (2.0-8.0); NEUTROPHILS % 78.5 % (40.0-76.0); PLATELET 224 x1000/uL (130-400); RED BLOOD CELL COUNT 2.54 mill/uL (4.7-6.1); RED CELL DISTRIBUTION WIDTH 18.3 % (11.6-14.6); WHITE BLOOD COUNT 8.5 x1000/uL (4.5-11.0)
[2023-07-22 04:33] LABS: ALBUMIN 2.4 g/dL (3.2-4.8); CALCIUM 7.8 mg/dL (8.7-10.4); CARBON DIOXIDE 27 mEq/L (21-32); CHLORIDE 108 mEq/L (98-107); CREATININE 1.2 mg/dL (0.6-1.3); GLUCOSE 105 mg/dL (70-105); IRON 60 ug/dL (65-175); SODIUM 141 mEq/L (136-145); TOTAL IRON BINDING CAPACITY 268 ug/dl (250-425); UREA NITROGEN BLOOD 36 mg/dL (9-23)
[2023-07-22 05:39] LABS: INR 1.2; PROTHROMBIN TIME 12.5 sec (9.6-11.0)
[2023-07-22 05:52] LABS: PREALBUMIN < 5.0 mg/dl (10.0-40.0)
[2023-07-22] MEDS: INSULIN LISPRO 100 UNITS/ML SUBCUT SCH ×4 (06:00→18:00)
[2023-07-22] MEDS: FENTANYL CITRATE 2,500 MCG in SODIUM CHLORIDE 0.9% 200 ML IV PRN (06:43)
[2023-07-22 07:19] LABS: FERRITIN 844 ng/mL (22-322); FOLIC ACID (FOLATE) SERUM 4.88 ng/mL (>5.38); VITAMIN B12 SERUM 510 pg/mL (211-911)
[2023-07-22] MEDS: CEFEPIME 2,000 MG in DEXT 5% WATER 100 ML IV SCH (09:00)
[2023-07-22] MEDS: IPRATROPIUM/ALBUTEROL 0.5-3(2.5)MG/3ML NEB HHN PRN ×2 (09:08→16:55)
[2023-07-22] MEDS: ACETYLCYSTEINE 200MG/ML 20% VIAL 4ML INH SCH ×2 (09:08→16:54)
[2023-07-22] MEDS: ASPIRIN 81MG TABLET PO SCH (09:10)
[2023-07-22] MEDS: DEXT 5%/0.9% NACL 1,000 ML IV SCH ×2 (09:30→23:33)
[2023-07-22] MEDS: AZITHROMYCIN 500 MG in DEXT 5% WATER 250 ML IV SCH (10:24)
[2023-07-22] MEDS: PANTOPRAZOLE SODIUM 40 MG/VIAL IV SCH (10:28)
[2023-07-22 11:12] LABS: BG BASE EXCESS -2.3 mmol/L (-2.0-2.0); BG CARBOXYHEMOGLOBIN 0.3 % (0.5-1.5); BG DEOXYHEMOGLOBIN 8.7 % (0.0-5.0); BG FRACTION INSPIRED OXYGEN 35; BG HCO3 ACT 23.4 mmol/L (22.0-26.0); BG METHEMOGLOBIN 0.4 % (0.0-1.5); BG OXYGEN SATURATION 91.2 % (92.0-98.5); BG OXYHEMOGLOBIN 90.6 % (94.0-97.0); BG PCO2 44.4 mmHg (35.0-45.0); BG PO2 63.6 mmHg (75.0-100.0); BG SAMPLE SITE RIGHT RADIAL; BG TOTAL HEMOGLOBIN 8.9 g/dL (12.0-18.0); BG VENT MODE VENT - SIMV/VC
[2023-07-22] MEDS: ENOXAPARIN 60MG/0.6ML SYR SUBCUT SCH (14:23)
[2023-07-22 15:49] LABS: BG BASE EXCESS -2.1 mmol/L (-2.0-2.0); BG CARBOXYHEMOGLOBIN 0.1 % (0.5-1.5); BG DEOXYHEMOGLOBIN 1.6 % (0.0-5.0); BG FRACTION INSPIRED OXYGEN 35; BG HCO3 ACT 24.1 mmol/L (22.0-26.0); BG METHEMOGLOBIN 0.3 % (0.0-1.5); BG OXYGEN SATURATION 98.4 % (92.0-98.5); BG PCO2 47.9 mmHg (35.0-45.0); BG SAMPLE SITE RIGHT BRACHIAL; BG TOTAL HEMOGLOBIN 9.6 g/dL (12.0-18.0); BG VENT MODE VENT - SIMV
[2023-07-22] MEDS: VANCOMYCIN 500MG PREMIX 100 ML IV SCH (18:41)
[2023-07-22] MEDS: FUROSEMIDE 40MG/4ML VIAL IVP SCH (23:34)
[2023-07-23] VITALS (52 sets, daily range): BP systolic 115–151; BP diastolic 43–78; PULSE 72–100; RESP 13–23; TEMP 97.3–98.2; O2SAT 93–99
[2023-07-23] MEDS: ACETYLCYSTEINE 200MG/ML 20% VIAL 4ML INH SCH ×3 (00:35→15:56)
[2023-07-23] MEDS: IPRATROPIUM/ALBUTEROL 0.5-3(2.5)MG/3ML NEB HHN PRN ×3 (00:35→15:56)
[2023-07-23 05:34] LABS: BASOPHILS % 0.2 % (0.0-2.0); EOSINOPHILS % 1.8 % (0.0-5.0); HEMATOCRIT. 24.2 % (42.0-52.0); HEMOGLOBIN. 7.5 g/dL (14.0-18.0); LYMPHOCYTES % 18.3 % (20.0-50.0); MEAN CORPUSCULAR HEMOGLOBIN 29.5 pg (28.0-32.0); MEAN CORPUSCULAR HGB CONC 30.9 g/dL (31.0-37.0); MEAN CORPUSCULAR VOLUME 95.5 fL (80.0-94.0); MEAN PLATELET VOLUME 7.3 fl (7.4-10.4); MONOCYTES % 7.7 % (2.0-8.0); PLATELET 197 x1000/uL (130-400); RED BLOOD CELL COUNT 2.54 mill/uL (4.7-6.1); WHITE BLOOD COUNT 5.7 x1000/uL (4.5-11.0)
[2023-07-23 05:46] LABS: CALCIUM 7.7 mg/dL (8.7-10.4); CARBON DIOXIDE 27 mEq/L (21-32); CHLORIDE 111 mEq/L (98-107); GLUCOSE 96 mg/dL (70-105); POTASSIUM 3.5 mEq/L (3.5-5.1); SODIUM 144 mEq/L (136-145); UREA NITROGEN BLOOD 27 mg/dL (9-23)
[2023-07-23] MEDS: INSULIN LISPRO 100 UNITS/ML SUBCUT SCH ×4 (06:00→18:00)
[2023-07-23] MEDS: BLOOD SUGAR DIAGNOSTIC STRIP TEST SCH ×4 (06:00→18:03)
[2023-07-23] MEDS: AZITHROMYCIN 500 MG in DEXT 5% WATER 250 ML IV SCH (11:15)
[2023-07-23] MEDS: PANTOPRAZOLE SODIUM 40 MG/VIAL IV SCH (11:15)
[2023-07-23] MEDS: FUROSEMIDE 40MG/4ML VIAL IVP SCH (11:15)
[2023-07-23] MEDS: CEFEPIME 2,000 MG in DEXT 5% WATER 100 ML IV SCH (11:16)
[2023-07-23] MEDS: ASPIRIN 81MG TABLET PO SCH (11:16)
[2023-07-23] MEDS: ENOXAPARIN 60MG/0.6ML SYR SUBCUT SCH (13:41)
[2023-07-23] MEDS: DEXT 5%/0.9% NACL 1,000 ML IV SCH (13:42)
[2023-07-23] MEDS: VANCOMYCIN 500MG PREMIX 100 ML IV SCH (18:45)
[2023-07-23] MEDS: GABAPENTIN 300MG CAPSULE PO SCH (23:00)
[2023-07-24] VITALS (13 sets, daily range): BP systolic 117–160; BP diastolic 44–86; PULSE 63–101; RESP 14–30; TEMP 97.2–98.2; O2SAT 95
[2023-07-24] MEDS: DEXT 5%/0.9% NACL 1,000 ML IV SCH ×2 (03:05→13:57)
[2023-07-24] MEDS: HYDROCODONE/ACETAMINOPHEN 10/325MG TABLET PO PRN ×4 (03:07→23:06)
[2023-07-24] MEDS: INSULIN LISPRO 100 UNITS/ML SUBCUT SCH ×5 (06:00→23:23)
[2023-07-24] MEDS: BLOOD SUGAR DIAGNOSTIC STRIP TEST SCH ×5 (06:24→23:05)
[2023-07-24] MEDS: IPRATROPIUM/ALBUTEROL 0.5-3(2.5)MG/3ML NEB HHN PRN (08:00)
[2023-07-24] MEDS: ACETYLCYSTEINE 200MG/ML 20% VIAL 4ML INH SCH (08:00)
[2023-07-24] MEDS: PANTOPRAZOLE SODIUM 40 MG/VIAL IV SCH (08:36)
[2023-07-24] MEDS: FUROSEMIDE 40MG/4ML VIAL IVP SCH (08:37)
[2023-07-24] MEDS: ASPIRIN 81MG TABLET PO SCH (08:38)
[2023-07-24] MEDS: AZITHROMYCIN 500 MG in DEXT 5% WATER 250 ML IV SCH (08:40)
[2023-07-24] MEDS: GABAPENTIN 300MG CAPSULE PO SCH ×4 (08:44→20:44)
[2023-07-24] MEDS: CEFEPIME 2,000 MG in DEXT 5% WATER 100 ML IV SCH (11:36)
[2023-07-24] MEDS: ENOXAPARIN 60MG/0.6ML SYR SUBCUT SCH (13:56)
[2023-07-24] MEDS: VANCOMYCIN 500MG PREMIX 100 ML IV SCH (18:22)
[2023-07-25] VITALS (15 sets, daily range): BP systolic 113–149; BP diastolic 40–96; PULSE 68–89; RESP 13–27; TEMP 97.3–98.3; O2SAT 94–97
[2023-07-25] MEDS: IPRATROPIUM/ALBUTEROL 0.5-3(2.5)MG/3ML NEB HHN PRN ×3 (01:36→13:24)
[2023-07-25] MEDS: ACETYLCYSTEINE 200MG/ML 20% VIAL 4ML INH SCH ×3 (01:36→17:29)
[2023-07-25] MEDS: INSULIN LISPRO 100 UNITS/ML SUBCUT SCH ×2 (05:44→12:00)
[2023-07-25] MEDS: BLOOD SUGAR DIAGNOSTIC STRIP TEST SCH ×3 (05:44→18:00)
[2023-07-25 06:48] LABS: INR 1.6; PROTHROMBIN TIME 16.3 sec (9.6-11.0)
[2023-07-25 06:57] LABS: BASOPHILS % 0.3 % (0.0-2.0); EOSINOPHILS % 1.6 % (0.0-5.0); HEMATOCRIT. 28.1 % (42.0-52.0); HEMOGLOBIN. 9.1 g/dL (14.0-18.0); LYMPHOCYTES % 24.7 % (20.0-50.0); MEAN CORPUSCULAR HEMOGLOBIN 30.3 pg (28.0-32.0); MEAN CORPUSCULAR HGB CONC 32.4 g/dL (31.0-37.0); MEAN CORPUSCULAR VOLUME 93.7 fL (80.0-94.0); MEAN PLATELET VOLUME 7.8 fl (7.4-10.4); MONOCYTES % 8.4 % (2.0-8.0); PLATELET 238 x1000/uL (130-400); RED CELL DISTRIBUTION WIDTH 17.6 % (11.6-14.6); WHITE BLOOD COUNT 7.2 x1000/uL (4.5-11.0)
[2023-07-25 07:24] LABS: ALANINE AMINOTRANSFERASE 9 IU/L (10-49); ALBUMIN 2.4 g/dL (3.2-4.8); ASPARTATE AMINOTRANSFERASE 12 IU/L (<34); BILIRUBIN TOTAL 0.5 mg/dL (0.1-1.0); CALCIUM 7.8 mg/dL (8.7-10.4); CARBON DIOXIDE 29 mEq/L (21-32); CHLORIDE 108 mEq/L (98-107); CREATININE 0.9 mg/dL (0.6-1.3); GLUCOSE 87 mg/dL (70-105); POTASSIUM 3.1 mEq/L (3.5-5.1); PROTEIN TOTAL 5.6 g/dL (6.0-8.3); SODIUM 144 mEq/L (136-145); UREA NITROGEN BLOOD 19 mg/dL (9-23)
[2023-07-25] MEDS: ASPIRIN 81MG TABLET PO SCH (08:28)
[2023-07-25] MEDS: PANTOPRAZOLE SODIUM 40 MG/VIAL IV SCH (08:28)
[2023-07-25] MEDS: FUROSEMIDE 40MG/4ML VIAL IVP SCH (08:28)
[2023-07-25] MEDS: CEFEPIME 2,000 MG in DEXT 5% WATER 100 ML IV SCH (08:28)
[2023-07-25] MEDS: GABAPENTIN 300MG CAPSULE PO SCH ×4 (08:41→21:45)
[2023-07-25] MEDS: HYDROCODONE/ACETAMINOPHEN 10/325MG TABLET PO PRN ×3 (08:43→21:48)
[2023-07-25] MEDS ORDERED: PHYTONADIONE 10MG/ML INJ SUBCUT NR (10:00)
[2023-07-25] MEDS: KCL 20MEQ/100ML PREMIX 100 ML IV SCH ×2 (11:33→13:23)
[2023-07-25] MEDS: ENOXAPARIN 60MG/0.6ML SYR SUBCUT SCH (13:23)
[2023-07-25] MEDS ORDERED: ENOXAPARIN 60MG/0.6ML SYR SUBCUT SCH (17:16)
[2023-07-25] MEDS: DEXT 5%/0.9% NACL 1,000 ML IV SCH (19:00)
[2023-07-26] VITALS (12 sets, daily range): BP systolic 119–163; BP diastolic 49–71; PULSE 70–92; RESP 17–25; TEMP 97.5–97.7
[2023-07-26] MEDS: DEXT 5%/0.9% NACL 1,000 ML IV SCH ×2 (04:09→19:40)
[2023-07-26] MEDS: HYDROCODONE/ACETAMINOPHEN 10/325MG TABLET PO PRN ×2 (04:41→14:17)
[2023-07-26] MEDS: INSULIN LISPRO 100 UNITS/ML SUBCUT SCH ×4 (06:00→17:56)
[2023-07-26] MEDS: BLOOD SUGAR DIAGNOSTIC STRIP TEST SCH ×4 (06:00→17:56)
[2023-07-26 06:15] LABS: INR 1.1; PROTHROMBIN TIME 12.1 sec (9.6-11.0)
[2023-07-26 06:31] LABS: BASOPHILS % 0.2 % (0.0-2.0); EOSINOPHILS % 1.9 % (0.0-5.0); HEMATOCRIT. 28.2 % (42.0-52.0); HEMOGLOBIN. 9.1 g/dL (14.0-18.0); LYMPHOCYTES % 27.3 % (20.0-50.0); MEAN CORPUSCULAR HEMOGLOBIN 30.1 pg (28.0-32.0); MEAN CORPUSCULAR HGB CONC 32.3 g/dL (31.0-37.0); MEAN CORPUSCULAR VOLUME 93.1 fL (80.0-94.0); MEAN PLATELET VOLUME 7.6 fl (7.4-10.4); MONOCYTES % 9.2 % (2.0-8.0); NEUTROPHILS % 61.4 % (40.0-76.0); PLATELET 252 x1000/uL (130-400); RED BLOOD CELL COUNT 3.03 mill/uL (4.7-6.1); RED CELL DISTRIBUTION WIDTH 17.5 % (11.6-14.6); WHITE BLOOD COUNT 5.8 x1000/uL (4.5-11.0)
[2023-07-26 06:37] LABS: CALCIUM 7.9 mg/dL (8.7-10.4); CARBON DIOXIDE 31 mEq/L (21-32); CHLORIDE 109 mEq/L (98-107); CREATININE 0.9 mg/dL (0.6-1.3); GLUCOSE 88 mg/dL (70-105); POTASSIUM 3.7 mEq/L (3.5-5.1); SODIUM 145 mEq/L (136-145); UREA NITROGEN BLOOD 20 mg/dL (9-23)
[2023-07-26] MEDS ORDERED: ENOXAPARIN 60MG/0.6ML SYR SUBCUT SCH (09:00)
[2023-07-26] MEDS: GABAPENTIN 300MG CAPSULE PO SCH ×4 (09:00→20:21)
[2023-07-26] MEDS: CEFEPIME 2,000 MG in DEXT 5% WATER 100 ML IV SCH ×2 (09:09→20:21)
[2023-07-26] MEDS: PANTOPRAZOLE SODIUM 40 MG/VIAL IV SCH (09:17)
[2023-07-26] MEDS: FUROSEMIDE 40MG/4ML VIAL IVP SCH (09:17)
[2023-07-26] MEDS: ONDANSETRON HCL 4MG/2ML INJ IV PRN (20:21)
[2023-07-26] MEDS: ATORVASTATIN CALCIUM 20MG TABLET PO SCH (20:22)
[2023-07-27] VITALS (11 sets, daily range): BP systolic 110–174; BP diastolic 44–70; PULSE 78–95; RESP 15–26; TEMP 97.2–98.2; O2SAT 94–95
[2023-07-27] MEDS: INSULIN LISPRO 100 UNITS/ML SUBCUT SCH ×5 (06:00→22:48)
[2023-07-27] MEDS: BLOOD SUGAR DIAGNOSTIC STRIP TEST SCH ×5 (06:00→22:47)
[2023-07-27 06:34] LABS: BASOPHILS % 0.5 % (0.0-2.0); EOSINOPHILS % 2.7 % (0.0-5.0); HEMATOCRIT. 29.5 % (42.0-52.0); HEMOGLOBIN. 9.2 g/dL (14.0-18.0); LYMPHOCYTES % 31.1 % (20.0-50.0); MEAN CORPUSCULAR HEMOGLOBIN 29.6 pg (28.0-32.0); MEAN CORPUSCULAR HGB CONC 31.1 g/dL (31.0-37.0); MEAN CORPUSCULAR VOLUME 95.2 fL (80.0-94.0); MEAN PLATELET VOLUME 7.4 fl (7.4-10.4); NEUTROPHILS % 53.7 % (40.0-76.0); PLATELET 294 x1000/uL (130-400); RED CELL DISTRIBUTION WIDTH 17.7 % (11.6-14.6); WHITE BLOOD COUNT 5.2 x1000/uL (4.5-11.0)
[2023-07-27 06:39] LABS: INR 1.1; PROTHROMBIN TIME 11.8 sec (9.6-11.0)
[2023-07-27 07:18] LABS: CALCIUM 7.7 mg/dL (8.7-10.4); CARBON DIOXIDE 29 mEq/L (21-32); CHLORIDE 111 mEq/L (98-107); CREATININE 0.9 mg/dL (0.6-1.3); GLUCOSE 106 mg/dL (70-105); POTASSIUM 3.5 mEq/L (3.5-5.1); SODIUM 146 mEq/L (136-145); UREA NITROGEN BLOOD 17 mg/dL (9-23)
[2023-07-27] MEDS: IPRATROPIUM/ALBUTEROL 0.5-3(2.5)MG/3ML NEB HHN PRN ×2 (08:20→13:19)
[2023-07-27] MEDS: FUROSEMIDE 40MG/4ML VIAL IVP SCH (08:51)
[2023-07-27] MEDS: PANTOPRAZOLE SODIUM 40 MG/VIAL IV SCH (08:51)
[2023-07-27] MEDS: DEXT 5%/0.9% NACL 1,000 ML IV SCH ×2 (08:51→20:34)
[2023-07-27] MEDS: CEFEPIME 2,000 MG in DEXT 5% WATER 100 ML IV SCH ×2 (08:52→20:36)
[2023-07-27] MEDS: GABAPENTIN 300MG CAPSULE PO SCH ×4 (09:00→20:34)
[2023-07-27] MEDS: ASPIRIN 81MG TABLET PO SCH (09:00)
[2023-07-27] MEDS ORDERED: MIDAZOLAM HCL 5 MG/5 ML VIAL ONE (11:29)
[2023-07-27] MEDS ORDERED: FENTANYL CITRATE/PF 50MCG/ML 2ML VIAL ONE (11:29)
[2023-07-27] MEDS ORDERED: FENTANYL CITRATE/PF 50MCG/ML 2ML VIAL IV PRN (11:38)
[2023-07-27] MEDS ORDERED: MIDAZOLAM HCL 5 MG/5 ML VIAL IV PRN (11:39)
[2023-07-27] MEDS: ATORVASTATIN CALCIUM 20MG TABLET PO SCH (20:34)
[2023-07-27] MEDS: HYDROCODONE/ACETAMINOPHEN 10/325MG TABLET PO PRN (22:46)
[2023-07-28] VITALS (12 sets, daily range): BP systolic 96–145; BP diastolic 46–97; PULSE 76–95; RESP 16–21; TEMP 97.3–98
[2023-07-28] MEDS: ONDANSETRON HCL 4MG/2ML INJ IV PRN (03:33)
[2023-07-28] MEDS: HYDROCODONE/ACETAMINOPHEN 10/325MG TABLET PO PRN ×2 (03:34→19:05)
[2023-07-28] MEDS: BLOOD SUGAR DIAGNOSTIC STRIP TEST SCH ×3 (05:16→17:00)
[2023-07-28] MEDS: INSULIN LISPRO 100 UNITS/ML SUBCUT SCH ×3 (06:00→17:01)
[2023-07-28 06:58] LABS: BASOPHILS % 0.6 % (0.0-2.0); EOSINOPHILS % 1.6 % (0.0-5.0); HEMATOCRIT. 26.7 % (42.0-52.0); HEMOGLOBIN. 8.5 g/dL (14.0-18.0); LYMPHOCYTES % 21.9 % (20.0-50.0); MEAN CORPUSCULAR HEMOGLOBIN 30.4 pg (28.0-32.0); MEAN CORPUSCULAR VOLUME 95.1 fL (80.0-94.0); MEAN PLATELET VOLUME 7.6 fl (7.4-10.4); NEUTROPHILS % 65.9 % (40.0-76.0); PLATELET 297 x1000/uL (130-400); WHITE BLOOD COUNT 6.1 x1000/uL (4.5-11.0)
[2023-07-28 07:05] LABS: CALCIUM 7.8 mg/dL (8.7-10.4); CARBON DIOXIDE 30 mEq/L (21-32); CHLORIDE 109 mEq/L (98-107); CREATININE 0.8 mg/dL (0.6-1.3); GLUCOSE 118 mg/dL (70-105); POTASSIUM 3.1 mEq/L (3.5-5.1); SODIUM 146 mEq/L (136-145); UREA NITROGEN BLOOD 16 mg/dL (9-23)
[2023-07-28] MEDS ORDERED: POTASSIUM CHLORIDE 20MEQ/PACKET GT NR (07:45)
[2023-07-28] MEDS: ASPIRIN 81MG TABLET PO SCH (09:26)
[2023-07-28] MEDS: ENOXAPARIN 60MG/0.6ML SYR SUBCUT SCH ×2 (09:26→20:14)
[2023-07-28] MEDS: CEFEPIME 2,000 MG in DEXT 5% WATER 100 ML IV SCH ×2 (09:27→20:14)
[2023-07-28] MEDS: FUROSEMIDE 40MG/4ML VIAL IVP SCH (09:27)
[2023-07-28] MEDS: PANTOPRAZOLE SODIUM 40 MG/VIAL IV SCH (09:27)
[2023-07-28] MEDS: GABAPENTIN 300MG CAPSULE PO SCH ×4 (09:31→20:14)
[2023-07-28] MEDS: DEXT 5%/0.9% NACL 1,000 ML IV SCH (11:40)
[2023-07-28] MEDS ORDERED: NALOXONE HCL 0.4MG/ML VIAL IV PRN (18:00)
[2023-07-28] MEDS: MULTIVITAMINS,THER W-MINERALS TABLET PO SCH (18:00)
[2023-07-28] MEDS: ZINC SULFATE 220 MG ( 50 ) CAPSULE PO SCH (19:04)
[2023-07-28] MEDS: ASCORBIC ACID 500 MG TABLET PO SCH (19:04)
[2023-07-28] MEDS: ATORVASTATIN CALCIUM 20MG TABLET PO SCH (20:17)
[2023-07-28] MEDS ORDERED: HYDROCODONE/ACETAMINOPHEN 10/325MG TABLET PO PRN (22:15)
[2023-07-29] VITALS (37 sets, daily range): BP systolic 59–142; BP diastolic 34–96; PULSE 49–98; RESP 14–30; TEMP 95.5–98.2; O2SAT 100
[2023-07-29] MEDS: DEXT 5%/0.9% NACL 1,000 ML IV SCH ×2 (01:00→06:48)
[2023-07-29] MEDS: INSULIN LISPRO 100 UNITS/ML SUBCUT SCH ×3 (06:00→12:00)
[2023-07-29] MEDS: BLOOD SUGAR DIAGNOSTIC STRIP TEST SCH ×3 (06:00→12:00)
[2023-07-29] MEDS ORDERED: LIDOCAINE HCL/EPINEPHRINE 1%-EPI 1:100,000 20 ML VIAL INFIL NR (08:00)
[2023-07-29] MEDS: MULTIVITAMINS,THER W-MINERALS TABLET PO SCH (09:00)
[2023-07-29] MEDS: GABAPENTIN 300MG CAPSULE PO SCH ×2 (09:00→21:00)
[2023-07-29] MEDS: PANTOPRAZOLE SODIUM 40 MG/VIAL IV SCH (09:26)
[2023-07-29] MEDS: FUROSEMIDE 40MG/4ML VIAL IVP SCH (09:27)
[2023-07-29] MEDS: ASPIRIN 81MG TABLET PO SCH (09:28)
[2023-07-29] MEDS: ASCORBIC ACID 500 MG TABLET PO SCH (09:29)
[2023-07-29] MEDS: ZINC SULFATE 220 MG ( 50 ) CAPSULE PO SCH (09:29)
[2023-07-29] MEDS: ENOXAPARIN 60MG/0.6ML SYR SUBCUT SCH ×2 (09:31→21:35)
[2023-07-29 10:42] LABS: BASOPHILS % 0.4 % (0.0-2.0); EOSINOPHILS % 0.4 % (0.0-5.0); HEMATOCRIT. 25.7 % (42.0-52.0); HEMOGLOBIN. 7.9 g/dL (14.0-18.0); LYMPHOCYTES % 12.5 % (20.0-50.0); MEAN CORPUSCULAR HEMOGLOBIN 29.7 pg (28.0-32.0); MEAN CORPUSCULAR HGB CONC 30.9 g/dL (31.0-37.0); MEAN CORPUSCULAR VOLUME 96.1 fL (80.0-94.0); MEAN PLATELET VOLUME 7.4 fl (7.4-10.4); MONOCYTES % 9.5 % (2.0-8.0); NEUTROPHILS % 77.2 % (40.0-76.0); PLATELET 278 x1000/uL (130-400); RED BLOOD CELL COUNT 2.67 mill/uL (4.7-6.1); RED CELL DISTRIBUTION WIDTH 18.5 % (11.6-14.6); WHITE BLOOD COUNT 8.1 x1000/uL (4.5-11.0)
[2023-07-29 12:07] LABS: CALCIUM 7.5 mg/dL (8.7-10.4); CREATININE 1.3 mg/dL (0.6-1.3)
[2023-07-29] MEDS ORDERED: PROPOFOL 10MG/ML 100ML 100 ML IV PRN ×2 (17:45→22:00)
[2023-07-29 18:14] LABS: BG BASE EXCESS 1.8 mmol/L (-2.0-2.0); BG CARBOXYHEMOGLOBIN 0.3 % (0.5-1.5); BG DEOXYHEMOGLOBIN 0.5 % (0.0-5.0); BG HCO3 ACT 27.9 mmol/L (22.0-26.0); BG METHEMOGLOBIN 0.3 % (0.0-1.5); BG OXYGEN SATURATION 99.5 % (92.0-98.5); BG OXYHEMOGLOBIN 98.9 % (94.0-97.0); BG PH 7.347 (7.350-7.450); BG PO2 341.5 mmHg (75.0-100.0); BG SAMPLE SITE RIGHT BRACHIAL; BG TOTAL HEMOGLOBIN 8.3 g/dL (12.0-18.0); BG VENT MODE VENT - AC
[2023-07-29] MEDS ORDERED: NOREPINEPHRINE 32 MG in DEXT 5% WATER 218 ML IV PRN (18:45)
[2023-07-29] MEDS ORDERED: FENTANYL CITRATE/PF 2,500 MCG in SODIUM CHLORIDE 0.9% 200 ML IV PRN (18:45)
[2023-07-29] MEDS: ATORVASTATIN CALCIUM 20MG TABLET PO SCH (21:00)
[2023-07-30] VITALS (60 sets, daily range): BP systolic 99–146; BP diastolic 36–64; PULSE 48–92; RESP 15–30; TEMP 97.8–98.1
[2023-07-30] MEDS: BLOOD SUGAR DIAGNOSTIC STRIP TEST SCH ×3 (00:28→12:46)
[2023-07-30] MEDS: INSULIN LISPRO 100 UNITS/ML SUBCUT SCH ×3 (06:00→12:00)
[2023-07-30] MEDS: DEXT 5%/0.9% NACL 1,000 ML IV SCH (06:29)
[2023-07-30 06:31] LABS: BASOPHILS % 0.4 % (0.0-2.0); EOSINOPHILS % 1.1 % (0.0-5.0); HEMATOCRIT. 22.5 % (42.0-52.0); HEMOGLOBIN. 7.1 g/dL (14.0-18.0); LYMPHOCYTES % 20.9 % (20.0-50.0); MEAN CORPUSCULAR HGB CONC 31.6 g/dL (31.0-37.0); MEAN CORPUSCULAR VOLUME 95.1 fL (80.0-94.0); MEAN PLATELET VOLUME 7.7 fl (7.4-10.4); MONOCYTES % 7.7 % (2.0-8.0); NEUTROPHILS % 69.9 % (40.0-76.0); PLATELET 279 x1000/uL (130-400); RED BLOOD CELL COUNT 2.37 mill/uL (4.7-6.1); RED CELL DISTRIBUTION WIDTH 17.9 % (11.6-14.6)
[2023-07-30] MEDS: GABAPENTIN 300MG CAPSULE PO SCH ×2 (08:24→13:06)
[2023-07-30] MEDS: FUROSEMIDE 40MG/4ML VIAL IVP SCH (08:24)
[2023-07-30] MEDS: MULTIVITAMINS,THER W-MINERALS TABLET PO SCH (08:24)
[2023-07-30] MEDS: ZINC SULFATE 220 MG ( 50 ) CAPSULE PO SCH (08:25)
[2023-07-30] MEDS: PANTOPRAZOLE SODIUM 40 MG/VIAL IV SCH (08:25)
[2023-07-30] MEDS: ASCORBIC ACID 500 MG TABLET PO SCH (08:25)
[2023-07-30] MEDS: ASPIRIN 81MG TABLET PO SCH (08:25)
[2023-07-30] MEDS: ENOXAPARIN 60MG/0.6ML SYR SUBCUT SCH (08:25)
[2023-07-30 11:43] LABS: CALCIUM 7.4 mg/dL (8.7-10.4); CREATININE 1.5 mg/dL (0.6-1.3); POTASSIUM 4.1 mEq/L (3.5-5.1)
[2023-07-30] MEDS ORDERED: MORPHINE SULFATE 250 MG in DEXT 5% WATER 225 ML IV PRN (16:15)
== END 2023-07-30 23:30 | DRG 853 ==
LOC: ER 17:27 → CVICU 19:01 → EDBEDREQ 19:03 → 5EST 07-23 12:56 → CVICU 07-29 19:29
PROVIDERS: ADMIT Internal Medicine; ATTEND Internal Medicine
PROC: 5A1945Z Respiratory Ventilation, 24-96 Consecutive Hours (ICD-10-PCS; 2023-07-19)
PROC: 5A0935A Assistance with Respiratory Ventilation, Less than 24 Consecutive Hours, High Flow/Velocity Cannula (ICD-10-PCS; 2023-07-19)
PROC: 0BH17EZ Insertion of Endotracheal Airway into Trachea, Via Natural or Artificial Opening (ICD-10-PCS; 2023-07-19)
PROC: 0DH64UZ Insertion of Feeding Device into Stomach, Percutaneous Endoscopic Approach (ICD-10-PCS; 2023-07-27)
PROC: 0KBN0ZZ Excision of Right Hip Muscle, Open Approach (ICD-10-PCS; principal; 2023-07-29)
PROC: 0KBP0ZZ Excision of Left Hip Muscle, Open Approach (ICD-10-PCS; 2023-07-29)
PROC: 5A1945Z Respiratory Ventilation, 24-96 Consecutive Hours (ICD-10-PCS; 2023-07-29)
DX: A41.9 Sepsis, unspecified organism (principal); G93.41 Metabolic encephalopathy; J96.01 Acute respiratory failure with hypoxia; J96.02 Acute respiratory failure with hypercapnia; L89.154 Pressure ulcer of sacral region, stage 4; R65.21 Severe sepsis with septic shock; J69.0 Pneumonitis due to inhalation of food and vomit; I13.0 Hypertensive heart and chronic kidney disease with heart failure and stage 1 through stage 4 chronic kidney disease, or unspecified chronic kidney disease; N17.9 Acute kidney failure, unspecified; E46 Unspecified protein-calorie malnutrition; J44.0 Chronic obstructive pulmonary disease with (acute) lower respiratory infection; I50.42 Chronic combined systolic (congestive) and diastolic (congestive) heart failure; J90 Pleural effusion, not elsewhere classified; K80.00 Calculus of gallbladder with acute cholecystitis without obstruction; K86.1 Other chronic pancreatitis; Z51.5 Encounter for palliative care; Z66 Do not resuscitate; Z68.33 Body mass index [BMI] 33.0-33.9, adult; I46.9 Cardiac arrest, cause unspecified; E11.22 Type 2 diabetes mellitus with diabetic chronic kidney disease; E11.51 Type 2 diabetes mellitus with diabetic peripheral angiopathy without gangrene; E87.5 Hyperkalemia; I25.10 Atherosclerotic heart disease of native coronary artery without angina pectoris; N18.30 Chronic kidney disease, stage 3 unspecified; E78.5 Hyperlipidemia, unspecified; D63.8 Anemia in other chronic diseases classified elsewhere; F10.10 Alcohol abuse, uncomplicated; I48.91 Unspecified atrial fibrillation; R13.12 Dysphagia, oropharyngeal phase; Z87.891 Personal history of nicotine dependence; Z89.511 Acquired absence of right leg below knee; Z89.512 Acquired absence of left leg below knee; Z95.1 Presence of aortocoronary bypass graft; Z99.3 Dependence on wheelchair
CPT/HCPCS: 31500; 36415; 36600; 71045; 74018; 74176; 76705; 76770; 80048; 80053; 80202; 80305; 81003; 82040; 82375; 82550; 82607; 82728; 82746; 82805; 82962; 83540; 83550; 83605; 84134; 84145; 84439; 84443; 84478; 84484; 85025; 85044; 87070; 87077; 87186; 92610; 93005; 93306; 93970; 94002; 94003; 94640; 99291; C9113; J0456; J0692; J1650; J1815; J1940; J2250; J2270; J2370; J2405; J2704; J2930; J3010; J3370; J3430; J3480; J3490; J7042; J7050; J7060; J7608